=== PATIENT | female | born 1990 | race Caucasian/White ===

== ENCOUNTER → 2018-05-16 15:46 | Outpatient (CLI) | payer BC, SELFPAY ==
[2015-06-13 10:07] VITALS: BMI 29.2
== END ==
PROVIDERS: Family Provider Family Medicine; PCP Family Medicine; Referring Provider Otolaryngology; Visit Provider Otolaryngology
DX: J02.9 Acute pharyngitis, unspecified (principal); R05 Cough
CPT/HCPCS: 87070; 87077; 87186; 87804

== ENCOUNTER → 2019-02-17 10:33 | Outpatient (CLI) | payer BC, SELFPAY ==
[2019-02-17 12:38] LABS: Absolute Lymphocyte Count 2.02 X10^3/uL (0.83-4.51); Basophil# 0.04 X10^3/uL; Basophil% 0.5 % (0-1); Eosinophil# 0.15 X10^3/uL; Eosinophils% 1.9 % (0-5); Hematocrit 45.3 % (37-47); Hemoglobin 14.9 g/dL (12.0-15.0); Lymphocyte # 2.02 X10^3/ul (4.0); Lymphocyte % 25.7 % (19-41); Mean Corp Hgb Conc 32.9 g/dL (32-36); Mean Corpuscular Hgb 31.8 pg (27.0-32.0); Mean Corpuscular Volume 96.8 fL (81-99); Monocyte# 0.64 X10^3/uL; Monocyte% 8.2 % (0-10); NRBC Flagged by Analyzer 0 % (0-5); Neutrophil # 4.95 X10^3/uL (2.7-7.7); Neutrophil % 63.1 % (47-70); Platelet Count 247 K/mm3 (150-450); RBC Distribution Width CV 11.8 % (11.6-14.6); RBC Distribution Width SD 41.7 fl (35.1-43.9); Red Blood Count 4.68 M/mm3 (4.2-5.4); White Blood Count 7.9 K/mm3 (4.4-11.0)
[2019-02-17 12:49] LABS: ALB/GLOB Ratio 1.1 RATIO (0.9-2.4); AST(SGOT) 15 U/L (15-37); Alanine Aminotransfer ALT/SGPT 14 U/L (13-56); Albumin, Serum 3.7 g/dL (3.2-5.0); Alkaline Phosphatase 66 U/L (45-117); Anion Gap 5 (5-15); BUN 15 mg/dL (7-18); BUN/Creat Ratio 15.2 RATIO (10-20); Calcium,Total 8.6 mg/dL (8.5-10.1); Chloride 109 mmol/L (98-107); Cholesterol 199 mg/dL (200); Creatinine, Serum 0.99 mg/dL (0.55-1.02); EST Glomerular Filtration Rate 70 mL/min (>60); Est Glom Filt Rate - Afr Amer 85 mL/min (>60); Globulin 3.4 g/dL (2.2-4.2); Glucose 84 mg/dL (74-106); High Density Lipoprotein 60 mg/dL; Potassium 3.8 mmol/L (3.5-5.1); Protein, Total 7.1 g/dL (6.4-8.2); Sodium Level 139 mmol/L (136-145); Thyroid Stim Hormone (TSH) 0.91 uIU/mL (0.358-3.74); Triglycerides 119 mg/dL; Very Low Density Lipoprotein 24 mg/dL (5-40)
== END ==
PROVIDERS: Family Provider Family Medicine; PCP Family Medicine; Visit Provider Family Medicine
DX: E28.2 Polycystic ovarian syndrome (principal); F32.9 Major depressive disorder, single episode, unspecified; Z31.69 Encounter for other general counseling and advice on procreation
CPT/HCPCS: 36415; 80053; 80061; 84443; 85025

== ENCOUNTER → 2020-04-21 15:21 | Outpatient (CLI) | payer BC, SELFPAY | PROVIDERS: PCP Family Medicine; Visit Provider Family Medicine | DX: Z01.419 Encounter for gynecological examination (general) (routine) without abnormal findings (principal) ==

== ENCOUNTER → 2020-11-15 20:03 | Outpatient (CLI) | payer BC, SELFPAY ==
[2020-11-15 21:18] LABS: hCG Titer Quant., Serum 2275 mIU/mL (1-3)
== END ==
PROVIDERS: PCP Family Medicine; Visit Provider Obstetrics & Gynecology
DX: E28.2 Polycystic ovarian syndrome (principal)
CPT/HCPCS: 84702

== ENCOUNTER → 2020-11-17 16:46 | Outpatient (CLI) | payer BC, SELFPAY ==
[2020-11-17 18:15] LABS: hCG Titer Quant., Serum 4237 mIU/mL (1-3)
== END ==
PROVIDERS: PCP Family Medicine; Referring Provider Obstetrics & Gynecology; Visit Provider Obstetrics & Gynecology
DX: N91.2 Amenorrhea, unspecified (principal)
CPT/HCPCS: 36415; 84702

== ENCOUNTER → 2020-11-22 07:51 | Outpatient (CLI) | payer BC, SELFPAY ==
--- NOTE | 2020-11-22 07:53 | US_ITS ---
STUDY: FIRST TRIMESTER OBSTETRICAL ULTRASOUND REASON FOR EXAM: Female, 30 years old viability/dating LMP: 09/07/2020. TECHNIQUE: Transvaginal TECHNICAL QUALITY: Adequate. PRIOR ULTRASOUND: None. FINDINGS: There is visualization of a single gestational sac in a normal intrauterine position. The mean sac diameter (MSD) measures 9.3 mm, indicating an estimated gestational age (EGA) of 5 weeks, 5 days. The gestational sac shape is within normal limits. There is a visualized yolk sac. The yolk sac measures 3.6 mm. The placenta is non-visualized. There is visualization of a live embryo. The crown-rump length (CRL) measures 2.6 mm, indicating an estimated gestational age (EGA) of 6 weeks, 0 days. There is no demonstrated cardiac activity at this time. The estimated gestation age (EGA) by LMP is 10 weeks, 6 days. The estimated date of delivery (ISABELLE) by LMP is 06/14/2021. The estimated gestation age (EGA) by US is 5 weeks, 6 days. The estimated date of delivery (ISABELLE) by US is 07/19/2021. The uterus measures 9.7 cm x 5.8 cm x 4.3 cm. There is no demonstrated uterine fibroid. The cervix is closed. The right ovary measures 3.5 cm x 2 cm x 2 cm. There is no right ovarian cyst. There is no visualized right adnexal mass or complex lesion. The left ovary measures 5.6 cm x 3.4 cm x 2.2 cm. There is a 2 cm x 2.2 cm x 2.3 cm left ovarian cyst. There is no visualized left adnexal mass or complex lesion. There is no fluid in the cul de sac. US/Transvaginal w/Preg US IMPRESSION: Entry uterine gestational sac with a pole. No cardiac activity is seen at this time. The estimated gestational age is 5 weeks and 6 days. Follow-up is recommended. 2 cm x 2.2 cm x 2.3 cm left ovarian cyst. Electronically Signed: Shelton Jordan MD at 13:35 EDT , Service support ,
--- NOTE | 2020-11-30 11:02 | US_ITS ---
STUDY: FIRST TRIMESTER OBSTETRICAL ULTRASOUND REASON FOR EXAM: Female, 30 years old viability LMP: Unknown. TECHNIQUE: Transvaginal TECHNICAL QUALITY: Adequate. PRIOR ULTRASOUND: Comparison is made with prior study dated 11/22/2020. FINDINGS: There is visualization of a single gestational sac in a normal intrauterine position. The mean sac diameter (MSD) measures 1.76 cm, indicating an estimated gestational age (EGA) of 6 weeks, 4 days. The gestational sac shape is within normal limits. There is a visualized yolk sac. The yolk sac measures 5.1 mm. The placenta is non-visualized. There is visualization of a live embryo. The crown-rump length (CRL) measures 9.5 mm, indicating an estimated gestational age (EGA) of 7 weeks, 0 days. There is demonstrated cardiac activity with a heart rate of 123 bpm. The estimated gestation age (EGA) by US is 6 weeks, 5 days. The estimated date of delivery (ISABELLE) by US is 07/21/2021. The uterus measures 9.3 cm x 6.7 cm x 4.8 cm. There is no demonstrated uterine fibroid. The cervix is closed. The right ovary measures 3.5 cm x 1.9 cm x 1.7 cm. There is no right ovarian cyst. There is no visualized right adnexal mass or complex lesion. The left ovary measures 4.8 cm x 3.2 cm x 2.3 cm. There is a 2.3 cm x 1.9 cm x 2.3 cm left ovarian cyst. There is no visualized left adnexal mass or complex lesion. There is no fluid in the cul de sac. US/Transvaginal w/Preg US IMPRESSION: Single live intrauterine gestation with a mean gestational age of 6 weeks and 5 days. Electronically Signed: Shelton Jordan MD at 15:20 EDT , Service support ,
== END ==
LOC: OPUS 07:56 → LAB 16:07
PROVIDERS: PCP Family Medicine; Referring Provider Obstetrics & Gynecology; Visit Provider Obstetrics & Gynecology
DX: Z34.90 Encounter for supervision of normal pregnancy, unspecified, unspecified trimester (principal)
CPT/HCPCS: 36415; 76817; 86850; 86900; 86901

== ENCOUNTER → 2020-11-30 10:48 | Outpatient (CLI) | payer BC, SELFPAY | PROVIDERS: PCP Family Medicine; Referring Provider Obstetrics & Gynecology; Visit Provider Obstetrics & Gynecology | DX: Z34.90 Encounter for supervision of normal pregnancy, unspecified, unspecified trimester (principal) | CPT/HCPCS: 76817 ==

== ENCOUNTER → 2020-12-19 18:12 | Outpatient (CLI) | payer BC, SELFPAY ==
[2020-12-19 18:35] LABS: Amphetamine Urine VISTA NEGATIVE (<1000 ng/mL); Barbiturate Urine VISTA NEGATIVE (< 200 ng/mL); Benzodiazepine Urine VISTA NEGATIVE (< 200 ng/mL); Cocaine Urine VISTA NEGATIVE (< 300 ng/mL); Ecstacy Urine VISTA NEGATIVE (< 500 ng/mL); Methadone Urine VISTA NEGATIVE (< 300 ng/mL); PCP Urine VISTA NEGATIVE (< 25 ng/mL); THC Urine VISTA NEGATIVE (< 50 ng/mL); Vista UDS pH Range 6
[2020-12-21 22:07] LABS: Chlamydia By Nucleic Acid AMP Negative (Negative)
[2020-12-22 08:10] LABS: Gonococcus By Nucleic Acid AMP Negative (Negative)
[2020-12-23 15:59] LABS: HPV APTIMA, High Risk Negative (Negative)
== END ==
PROVIDERS: PCP Family Medicine; Referring Provider Obstetrics & Gynecology; Visit Provider Obstetrics & Gynecology
DX: Z34.90 Encounter for supervision of normal pregnancy, unspecified, unspecified trimester (principal)
CPT/HCPCS: 80307; 87086; 87088; 87491; 87591; 87624; 88175; G0145

== ENCOUNTER → 2020-12-22 13:34 | Outpatient (CLI) | payer BC, SELFPAY ==
[2020-12-22 14:01] LABS: Absolute Lymphocyte Count 2.15 X10^3/uL (0.83-4.51); Absolute Neutrophil Count 9.8 X10^3/uL (2.0-7.7); Basophil# 0.04 X10^3/uL; Basophil% 0.3 % (0-1); Eosinophil# 0.13 X10^3/uL; Hematocrit 41.4 % (37-47); Hemoglobin 13.9 g/dL (12.0-15.0); Lymphocyte # 2.15 X10^3/ul (0.83-4.51); Lymphocyte % 16.7 % (19-41); Mean Corp Hgb Conc 33.6 g/dL (32-36); Mean Corpuscular Hgb 31.2 pg (27.0-32.0); Mean Corpuscular Volume 92.8 fL (81-99); Mean Platelet Vol. 10.5 fl (6.2-12.0); Monocyte# 0.64 X10^3/uL; NRBC Flagged by Analyzer 0 % (0-5); Neutrophil # 9.82 X10^3/uL (2.7-7.7); Neutrophil % 76.2 % (47-70); Platelet Count 272 K/mm3 (150-450); RBC Distribution Width CV 11.3 % (11.6-14.6); RBC Distribution Width SD 38.5 fl (35.1-43.9); Red Blood Count 4.46 M/mm3 (4.2-5.4); White Blood Count 12.9 K/mm3 (4.4-11.0)
[2020-12-22 14:56] LABS: HIV - WCH Non-Reactive (Nonreactive); Hepatitis B Surface Antigen Non-Reactive (Nonreactive); Hepatitis C Antibody Non-Reactive (Nonreactive); Rubella IgG Reactive (Nonreactive); Syphilis Antibodies Non-reactive
[2020-12-22 15:08] LABS: NATERA MAILED SPECIMEN
== END ==
PROVIDERS: PCP Family Medicine; Referring Provider Obstetrics & Gynecology; Visit Provider Obstetrics & Gynecology
DX: Z34.90 Encounter for supervision of normal pregnancy, unspecified, unspecified trimester (principal)
CPT/HCPCS: 36415; 85025; 86703; 86762; 86780; 86803; 86850; 86900; 86901; 87340

== ENCOUNTER → 2021-01-25 10:57 | Outpatient (CLI) | payer BC, SELFPAY ==
[2021-01-25 11:41] LABS: Glucose Challenge Gest 1H 50g 150 mg/dL (70-140)
== END ==
PROVIDERS: PCP Family Medicine; Referring Provider Obstetrics & Gynecology; Visit Provider Obstetrics & Gynecology
DX: O99.212 Obesity complicating pregnancy, second trimester (principal); Z3A.00 Weeks of gestation of pregnancy not specified
CPT/HCPCS: 36415; 82950

== ENCOUNTER → 2021-01-27 09:47 | Outpatient (CLI) | payer BC, SELFPAY ==
[2021-01-27 11:49] LABS: Glucose GTT-Gestation. Fasting 93 mg/dL (<105)
[2021-01-27 11:51] LABS: Glucose GTT-Gestational 1 Hr 177 mg/dL (<190)
[2021-01-27 13:27] LABS: Glucose GTT-Gestational 2 Hr 150 mg/dL (<165)
[2021-01-27 13:59] LABS: Glucose GTT-Gestational 3 Hr 110 L (<145)
== END ==
PROVIDERS: Obstetrics & Gynecology; PCP Family Medicine; Referring Provider Obstetrics & Gynecology; Visit Provider Obstetrics & Gynecology
DX: Z13.1 Encounter for screening for diabetes mellitus (principal)
CPT/HCPCS: 36415; 82951; 82952

== ENCOUNTER → 2021-02-14 17:15 | Outpatient (CLI) | payer BC, SELFPAY | PROVIDERS: PCP Family Medicine; Referring Provider Obstetrics & Gynecology; Visit Provider Obstetrics & Gynecology | DX: O23.40 Unspecified infection of urinary tract in pregnancy, unspecified trimester (principal); Z3A.00 Weeks of gestation of pregnancy not specified | CPT/HCPCS: 87086 ==

== ENCOUNTER 2021-03-21 04:08 | Emergency (ER) | payer BC, SELFPAY ==
[2021-03-21 04:10] VITALS: BP 118/80; PULSE 112; RESP 20; TEMP 36.4; O2SAT 95; BMI 36.5
--- NOTE | 2021-03-21 04:30 | EX.ED.DYSGE1 ---
HPI History of Present Illness Chief Complaint: Diarrhea Informant: patient Narrative Narrative: 30-year-old female presents to the emergency department diarrhea. Patient states that she is in her second trimester of . On Saturday she experienced vomiting took some Zofran. Early during the Saturday morning hours she developed diarrhea and states that its been copious since. She describes it as watery and nonbloody. She feels dehydrated. 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 She denies any fever or abdominal cramping. She has been feeling the baby move appropriately. This is her first and she states it has been going well. She is currently following with Dr. Coughlin. [facility] Medical History PCOS (polycystic ovarian syndrome) Home Medications vitamin#30 30 mg iron-10 mg iron-folic acid 1 mg-omg3 capsule 1 cap PO DAILY 12/19/20 [History Last Taken Unknown] ondansetron 4 mg disintegrating tablet 4 mg PO Q4H PRN #60 tab 01/19/21 [Rx Last Taken Unknown] Allergy/AdvReac Type Severity Reaction Status Date / Time No Known Allergies Allergy Verified 03/21/21 04:09 Family History Father Hypertension Mother Hyperlipemia Aunt Diabetes Breast cancer Grandmother Breast cancer Hypertension Colon cancer Surgical History no surgical history Social History housing: house current occupational status: employed current occupation: [employer] pets and animals: Yes Smoking Status: Former smoker second hand exposure: No alcohol intake: current substance use type: former substance user seatbelt use: always do you feel safe at home: Yes ROS ROS ED Constitutional Constitutional ED: Denies chills or weight loss Eyes Eyes: Denies change in vision or diplopia ENT ENT ED: Denies ear pain, rhinorrhea or sore throat Cardiovascular Cardiovascular: Denies chest pain, orthopnea, palpitations or racing heartbeat Respiratory/Chest Respiratory/Chest: Denies cough, dyspnea or orthopnea Gastrointestinal Gastrointestinal: Reports diarrhea, nausea and vomiting; Denies abdominal pain Genitourinary Genitourinary ED: Denies dysuria, hematuria or urinary frequency Musculoskeletal Musculoskeletal: Denies arthralgias or myalgias Integumentary Denies abscess or rash Neurologic Neurologic: Denies headache(s) or weakness Psychiatric Psychiatric: Denies anxiety, depression, suicidal ideation or suicidal thoughts Endocrine Endocrinology: Denies polydipsia, polyphagia or polyuria Allergic/Immunologic Allergic/Immunologic ED: Denies mouth swelling, tongue swelling or urticaria EXAM Physical Exam Const Vital Signs: 03/21/21 04:10 Temperature 97.5 F L Temperature Source Oral Pulse Rate 112 H Respiratory Rate 20 H Blood Pressure 118/80 Blood Pressure Mean 92 Pulse Ox 95 Oxygen Delivery Method Room Air Positive well nourished and well developed General Appearance ED: well developed HEENT Reports normocephalic, head/scalp atraumatic, TM's clear and dry mucous membranes Negative for trauma Tympanic Membrane ED: Yes TM's clear Mouth ED: Yes dry mucous membranes Mouth: dry mucous membranes Eyes PERRL and EOMs intact bilaterally Neck no lymphadenopathy, supple and no JVD Resp normal respiratory effort and clear to auscultation bilaterally Cardio regular rate and no murmurs Rate: tachycardic GI normal to inspection, nondistended, normoactive bowel sounds and non-tender Palpation: soft Back/Spine no CVA tenderness and normal ROM Extremity normal to inspection General Extremety ED: Negative for edema General Extremity: Negative for edema Neuro oriented x3 and CN's II-XII intact bilaterally Sensorium / Orientation: alert Motor Exam: strength 5/5 throughout Psych mental status grossly normal Mood & Affect: Negative for depressed or tearful Skin no rashes or lesions noted and no wounds MDM MDM MDM Narrative Medical decision making narrative: Basic blood work showed a slight nonspecific leukocytosis at 14. CMP is otherwise normal. Patient received 2 L of IV fluids. She was able to produce a specimen which was sent for enteric pathogens. Patient instructed to return if worsening or concerns and to orally hydrate. Lab Data Attestation: I reviewed the patient's lab results. Labs: Laboratory Results - last 24 hr 03/21/21 03/21/21 04:37 04:37 WBC 14.3 H RBC 3.95 L Hgb 12.1 Hct 36.8 L MCV 93.2 MCH 30.6 MCHC 32.9 RDW Std Deviation 42.2 RDW Coeff of David 12.2 Plt Count 220 MPV 11.0 Immature Gran % (Auto) 1.300 H Neut % (Auto) 81.3 H Lymph % (Auto) 8.6 L Miller % (Auto) 7.5 Eos % (Auto) 1.0 Baso % (Auto) 0.3 Absolute Neuts (auto) 11.6 H Absolute Lymphs (auto) 1.23 Nucleated RBC % 0 Sodium 137 Potassium 3.7 Chloride 108 H Carbon Dioxide 21.0 Anion Gap 8 BUN 10 Creatinine 0.68 Estim Creat Clear Calc 132.75 Est GFR (MDRD) Af Amer 129 Est GFR (MDRD) Non-Af 106 BUN/Creatinine Ratio 14.7 Glucose 95 Calcium 8.3 L Total Bilirubin 0.30 AST 26 ALT 26 Alkaline Phosphatase 71 Total Protein 6.4 Albumin 2.8 L Globulin 3.6 Albumin/Globulin Ratio 0.8 L Discharge Plan Triage Chief Complaint: Diarrhea ED Provider: Kleber Wesley Dx/Rx/DC Orders Clinical Impression: , Diarrhea Instructions: ED Diarrhea, Unknown Cause Prescriptions: No Action PNV #[id number] 30 mg iron-10 mg iron-1 mg capsule 1 cap PO DAILY RF: 0 ondansetron 4 mg tablet,disintegrating 4 mg PO Q4H PRN (Reason: nausea and vomiting) Qty: 60 RF: 2 Primary Care Provider: Marianne Nguyen Referrals: Marianne Nguyen MD [Primary Care Provider] - As Needed Disposition Disposition: Home, Self Care
[2021-03-21] MEDS: 0.9% Normal Saline 1,000 ML 999 ML IV ×2 (04:41→05:58)
[2021-03-21 04:43] LABS: Absolute Lymphocyte Count 1.23 X10^3/uL (0.83-4.51); Absolute Neutrophil Count 11.6 X10^3/uL (2.0-7.7); Basophil# 0.04 X10^3/uL; Basophil% 0.3 % (0-1); Eosinophil# 0.14 X10^3/uL; Hematocrit 36.8 % (37-47); Hemoglobin 12.1 g/dL (12.0-15.0); Lymphocyte # 1.23 X10^3/ul (0.83-4.51); Lymphocyte % 8.6 % (19-41); Mean Corp Hgb Conc 32.9 g/dL (32-36); Mean Corpuscular Hgb 30.6 pg (27.0-32.0); Mean Corpuscular Volume 93.2 fL (81-99); Monocyte# 1.07 X10^3/uL; Monocyte% 7.5 % (0-10); NRBC Flagged by Analyzer 0 % (0-5); Neutrophil # 11.61 X10^3/uL (2.7-7.7); Neutrophil % 81.3 % (47-70); Platelet Count 220 K/mm3 (150-450); RBC Distribution Width CV 12.2 % (11.6-14.6); RBC Distribution Width SD 42.2 fl (35.1-43.9); Red Blood Count 3.95 M/mm3 (4.2-5.4); White Blood Count 14.3 K/mm3 (4.4-11.0)
[2021-03-21 05:07] LABS: ALB/GLOB Ratio 0.8 RATIO (0.9-2.4); AST(SGOT) 26 U/L (15-37); Alanine Aminotransfer ALT/SGPT 26 U/L (13-56); Albumin, Serum 2.8 g/dL (3.2-5.0); Alkaline Phosphatase 71 U/L (45-117); Anion Gap 8 (5-15); BUN 10 mg/dL (7-18); BUN/Creat Ratio 14.7 RATIO (10-20); Calcium,Total 8.3 mg/dL (8.5-10.1); Chloride 108 mmol/L (98-107); Creatinine, Serum 0.68 mg/dL (0.55-1.02); EST Glomerular Filtration Rate 106 mL/min (>60); Est Glom Filt Rate - Afr Amer 129 mL/min (>60); Estimated Creatinine Clearance 132.75 ml/min; Globulin 3.6 g/dL (2.2-4.2); Glucose 95 mg/dL (74-106); Potassium 3.7 mmol/L (3.5-5.1); Protein, Total 6.4 g/dL (6.4-8.2); Sodium Level 137 mmol/L (136-145)
== END 2021-03-21 09:18 | disposition home or self-care (01) ==
PROVIDERS: Emergency Provider Emergency Medicine; PCP Family Medicine; Visit Provider Emergency Medicine
DX: O99.612 Diseases of the digestive system complicating pregnancy, second trimester (principal); R19.7 Diarrhea, unspecified; Z87.891 Personal history of nicotine dependence; Z3A.00 Weeks of gestation of pregnancy not specified
CPT/HCPCS: 80053; 85025; 87506; 99284; A4216

== ENCOUNTER 2021-04-11 09:21 | Outpatient (CLI) | payer BC, SELFPAY ==
[2021-04-11 09:50] LABS: Absolute Lymphocyte Count 2.22 X10^3/uL (0.83-4.51); Absolute Neutrophil Count 9.1 X10^3/uL (2.0-7.7); Basophil# 0.05 X10^3/uL; Basophil% 0.4 % (0-1); Eosinophil# 0.18 X10^3/uL; Eosinophils% 1.4 % (0-5); Hematocrit 36.7 % (37-47); Hemoglobin 12.5 g/dL (12.0-15.0); Lymphocyte # 2.22 X10^3/ul (0.83-4.51); Lymphocyte % 17.8 % (19-41); Mean Corp Hgb Conc 34.1 g/dL (32-36); Mean Corpuscular Hgb 31.1 pg (27.0-32.0); Mean Corpuscular Volume 91.3 fL (81-99); Mean Platelet Vol. 11.1 fl (6.2-12.0); Monocyte# 0.73 X10^3/uL; Monocyte% 5.8 % (0-10); NRBC Flagged by Analyzer 0 % (0-5); Neutrophil # 9.13 X10^3/uL (2.7-7.7); Neutrophil % 73.2 % (47-70); Platelet Count 237 K/mm3 (150-450); RBC Distribution Width CV 12.3 % (11.6-14.6); Red Blood Count 4.02 M/mm3 (4.2-5.4); White Blood Count 12.5 K/mm3 (4.4-11.0)
[2021-04-11 10:27] LABS: Glucose Challenge Gest 1H 50g 147 mg/dL (70-140)
== END 2021-04-11 23:59 | disposition short-term general hospital (02) ==
LOC: PAVLAB 09:22
PROVIDERS: PCP Family Medicine; Referring Provider Obstetrics & Gynecology; Visit Provider Obstetrics & Gynecology
DX: Z34.02 Encounter for supervision of normal first pregnancy, second trimester (principal)
CPT/HCPCS: 36415; 82950; 85025

== ENCOUNTER 2021-04-20 07:01 | Outpatient (CLI) | payer BC, SELFPAY ==
[2021-04-20 08:32] LABS: Glucose GTT-Gestation. Fasting 85 mg/dL (<105)
[2021-04-20 08:35] LABS: Glucose GTT-Gestational 1 Hr 164 mg/dL (<190)
[2021-04-20 09:37] LABS: Glucose GTT-Gestational 2 Hr 145 mg/dL (<165)
[2021-04-20 10:49] LABS: Glucose GTT-Gestational 3 Hr 121 L (<145)
== END 2021-04-20 23:59 | disposition home or self-care (01) ==
LOC: LAB 07:02
PROVIDERS: PCP Family Medicine; Referring Provider Obstetrics & Gynecology; Visit Provider Obstetrics & Gynecology
DX: O99.810 Abnormal glucose complicating pregnancy (principal); Z3A.00 Weeks of gestation of pregnancy not specified
CPT/HCPCS: 36415; 82951; 82952

== ENCOUNTER 2021-06-06 12:11 | Outpatient (CLI) | payer BC, SELFPAY ==
[2021-06-06 12:27] LABS: Absolute Lymphocyte Count 2.56 X10^3/uL (0.83-4.51); Absolute Neutrophil Count 8.7 X10^3/uL (2.0-7.7); Basophil# 0.03 X10^3/uL; Basophil% 0.2 % (0-1); Eosinophil# 0.11 X10^3/uL; Eosinophils% 0.9 % (0-5); Hematocrit 38.4 % (37-47); Hemoglobin 13.1 g/dL (12.0-15.0); Lymphocyte # 2.56 X10^3/ul (0.83-4.51); Lymphocyte % 20.2 % (19-41); Mean Corp Hgb Conc 34.1 g/dL (32-36); Mean Platelet Vol. 11.5 fl (6.2-12.0); Monocyte# 1.14 X10^3/uL; NRBC Flagged by Analyzer 0 % (0-5); Neutrophil # 8.65 X10^3/uL (2.7-7.7); Neutrophil % 68.1 % (47-70); Platelet Count 233 K/mm3 (150-450); RBC Distribution Width CV 12.6 % (11.6-14.6); Red Blood Count 4.22 M/mm3 (4.2-5.4); White Blood Count 12.7 K/mm3 (4.4-11.0)
[2021-06-06 13:14] LABS: ALB/GLOB Ratio 0.7 RATIO (0.9-2.4); AST(SGOT) 20 U/L (15-37); Alanine Aminotransfer ALT/SGPT 22 U/L (13-56); Albumin, Serum 2.9 g/dL (3.2-5.0); Alkaline Phosphatase 105 U/L (45-117); Anion Gap 5 (5-15); BUN 9 mg/dL (7-18); Calcium,Total 9.2 mg/dL (8.5-10.1); Chloride 106 mmol/L (98-107); Creatinine, Serum 0.75 mg/dL (0.55-1.02); EST Glomerular Filtration Rate 95 mL/min (>60); Est Glom Filt Rate - Afr Amer 115 mL/min (>60); Globulin 3.9 g/dL (2.2-4.2); Glucose 72 mg/dL (74-106); Potassium 4.3 mmol/L (3.5-5.1); Protein, Total 6.8 g/dL (6.4-8.2); Sodium Level 136 mmol/L (136-145)
[2021-06-06 13:57] LABS: Protein, Urine (Random) 17.4 mg/dL (<11.9); Protein:Creat Ratio 193 mg/g CRE (0-200)
== END 2021-06-06 23:59 | disposition home or self-care (01) ==
LOC: LAB 12:12
PROVIDERS: PCP Family Medicine; Visit Provider Obstetrics & Gynecology
DX: O16.3 Unspecified maternal hypertension, third trimester (principal); Z3A.00 Weeks of gestation of pregnancy not specified
CPT/HCPCS: 36415; 80053; 82570; 84156; 85025

== ENCOUNTER 2021-06-13 14:39 | Outpatient (CLI) | payer BC, SELFPAY ==
[2021-06-13 14:58] LABS: Absolute Lymphocyte Count 1.97 X10^3/uL (0.83-4.51); Absolute Neutrophil Count 8.6 X10^3/uL (2.0-7.7); Basophil# 0.02 X10^3/uL; Basophil% 0.2 % (0-1); Eosinophils% 0.8 % (0-5); Hematocrit 37.6 % (37-47); Hemoglobin 12.6 g/dL (12.0-15.0); Lymphocyte # 1.97 X10^3/ul (0.83-4.51); Lymphocyte % 16.7 % (19-41); Mean Corp Hgb Conc 33.5 g/dL (32-36); Mean Corpuscular Hgb 30.8 pg (27.0-32.0); Mean Corpuscular Volume 91.9 fL (81-99); Mean Platelet Vol. 11.8 fl (6.2-12.0); Monocyte# 1.05 X10^3/uL; Monocyte% 8.9 % (0-10); NRBC Flagged by Analyzer 0 % (0-5); Neutrophil # 8.57 X10^3/uL (2.7-7.7); Neutrophil % 72.4 % (47-70); Platelet Count 227 K/mm3 (150-450); RBC Distribution Width CV 12.5 % (11.6-14.6); RBC Distribution Width SD 41.3 fl (35.1-43.9); Red Blood Count 4.09 M/mm3 (4.2-5.4); White Blood Count 11.8 K/mm3 (4.4-11.0)
[2021-06-13 15:32] LABS: ALB/GLOB Ratio 0.7 RATIO (0.9-2.4); AST(SGOT) 20 U/L (15-37); Alanine Aminotransfer ALT/SGPT 21 U/L (13-56); Albumin, Serum 2.8 g/dL (3.2-5.0); Alkaline Phosphatase 102 U/L (45-117); Anion Gap 6 (5-15); BUN 12 mg/dL (7-18); BUN/Creat Ratio 13.1 RATIO (10-20); Calcium,Total 9.3 mg/dL (8.5-10.1); Chloride 108 mmol/L (98-107); Creatinine, Serum 0.92 mg/dL (0.55-1.02); EST Glomerular Filtration Rate 75 mL/min (>60); Est Glom Filt Rate - Afr Amer 91 mL/min (>60); Globulin 3.9 g/dL (2.2-4.2); Glucose 96 mg/dL (74-106); Potassium 4.3 mmol/L (3.5-5.1); Protein, Total 6.7 g/dL (6.4-8.2); Sodium Level 138 mmol/L (136-145)
[2021-06-13 15:37] LABS: Protein:Creat Ratio 111 mg/g CRE (0-200)
== END 2021-06-13 23:59 | disposition home or self-care (01) ==
LOC: PAVLAB 14:39
PROVIDERS: PCP Family Medicine; Referring Provider Obstetrics & Gynecology; Visit Provider Obstetrics & Gynecology
DX: O13.9 Gestational [pregnancy-induced] hypertension without significant proteinuria, unspecified trimester (principal); Z3A.00 Weeks of gestation of pregnancy not specified
CPT/HCPCS: 36415; 80053; 82570; 84156; 85025

== ENCOUNTER 2021-06-14 15:30 | Inpatient (IN) | payer BC, SELFPAY ==
[2021-06-14] VITALS (67 sets, daily range): BP systolic 126–179; BP diastolic 52–116; PULSE 86–118; RESP 16–18; TEMP 36.3–36.9; O2SAT 90–98; BMI 40.2
[2021-06-14 15:33] LABS: Protein, Urine (Random) 19.3 mg/dL (<11.9); Protein:Creat Ratio 218 mg/g CRE (0-200)
[2021-06-14] MEDS: Lactated Ringers 1,000 ML 15 ML IV (15:50)
[2021-06-14] MEDS: Labetalol (Prefilled) 20 MG/4 ML IV (15:50)
[2021-06-14] MEDS: Magnesium Sulfate 4gm/100mL 4 GM/100 ML IV.SOLN. IV (15:57)
[2021-06-14 16:12] LABS: Absolute Neutrophil Count 13.9 X10^3/uL (2.0-7.7); Basophil# 0.07 X10^3/uL; Basophil% 0.4 % (0-1); Eosinophil# 0.02 X10^3/uL; Eosinophils% 0.1 % (0-5); Hematocrit 38.2 % (37-47); Hemoglobin 13.2 g/dL (12.0-15.0); Lymphocyte % 11.3 % (19-41); Mean Corp Hgb Conc 34.6 g/dL (32-36); Mean Corpuscular Hgb 31.5 pg (27.0-32.0); Mean Corpuscular Volume 91.2 fL (81-99); Mean Platelet Vol. 12.3 fl (6.2-12.0); Monocyte# 1.29 X10^3/uL; Monocyte% 7.3 % (0-10); NRBC Flagged by Analyzer 0 % (0-5); Neutrophil # 13.86 X10^3/uL (2.7-7.7); Neutrophil % 77.9 % (47-70); Platelet Count 249 K/mm3 (150-450); RBC Distribution Width CV 12.4 % (11.6-14.6); RBC Distribution Width SD 40.7 fl (35.1-43.9); Red Blood Count 4.19 M/mm3 (4.2-5.4); White Blood Count 17.8 K/mm3 (4.4-11.0)
[2021-06-14] MEDS: Magnesium Sulfate 4gm/100mL 2 GM/50 ML IV.SOLN. IV (16:16)
[2021-06-14] MEDS: Labetalol 100 MG Tablet PO (16:24)
[2021-06-14] MEDS: Labetalol (Compound) 20 MG/4 ML SYRINGE IV ×2 (16:27→16:44)
[2021-06-14] MEDS: Magnesium Sulfate 20 GM/500 ML BAG IV (16:31)
--- NOTE | 2021-06-14 17:25 | HP.PCM.OB_ITS ---
HPI - General General Date of Admission: 06/14/21 HPI Narrative JENNYFER RAMIREZ, is a 30 y/o @ 35 weeks 4 day who presents to L&D after being seen in office today with severe range blood pressures. She denies headaches, blurry vision, or epigastric pain other than mild headache from crying. Labs were done yesterday along with Celestone injections x 2 yesterday and today. pr:cr yesterday was 111 and today is 218. Plts and LFts are all normal. Maternal Data Information ISABELLE Calculator Estimated Delivery Date Method Current WG Current Estimate 07/15/21 LMP (Certain) 35w 4d PFSH PFSH Medical History (Updated 06/14/21 @ 17:01 by Koki Coulter) Anxiety PCOS (polycystic ovarian syndrome) Home Medications vitamin#30 30 mg iron-10 mg iron-folic acid 1 mg-omg3 capsule 1 cap PO DAILY 12/19/20 [History Last Taken 06/13/21 20:00] Allergy/AdvReac Type Severity Reaction Status Date / Time No Known Allergies Allergy Verified 06/14/21 14:15 Family History Father Hypertension Mother Hyperlipemia Aunt Diabetes Breast cancer Grandmother Breast cancer Hypertension Colon cancer Surgical History (Updated 06/14/21 @ 17:01 by Koki Coulter) [place] teeth removed Social History housing: house current occupational status: employed current occupation: [employer] pets and animals: Yes Smoking Status: Former smoker second hand exposure: No alcohol intake: current substance use type: former substance user seatbelt use: always do you feel safe at home: Yes History 1 Elective abortions Hx Para 0 Spontaneous abortions Hx # Term Pregnancies Ectopic pregnancies Hx # Pregnancies Multiple births # of living children Visit Details Expected Delivery Route/Plan Labor Preferences- CB/BF classes: yes scheduled labor support person: Wilfrid, mom Maci labor intervention preferences: [] pain management options preferred: epidural cut cord/dad catch: [] : yes PP control planned: discussed discussed possible routes of delivery and associated risks: [] special requests: [] Plans Covid status: 05/01 moderna vaccinated7 Flu vaccine: yes Tdap vaccine: given Rhogam: na LARC form signed: yes Problem list reviewed and updated with the most current plan of care details and appropriate orders placed. Relevant counseling for the gestational age provided. Continue routine care and follow up unless otherwise noted in visit notes/problem list details OB Flowsheet Initial Weight: Not Recorded Date -?-?-?-?-?-?-?-?-?-?-?-?- EGA Weight BP Urine Prot -?-?-?-?-?-?-?-?-?-?-?-?- Glucose FHR FuHt Pres Dilation -?-?-?-?-?-?-?-?-?-?-?-?- Effaced St Visit Note 12/19/20 -?-?-?-?-?-?-?-?-?-?-?-?- 10w 2d 248 lb 132/84 -?-?-?-?-?-?-?-?-?-?-?-?- 170 -?-?-?-?-?-?-?-?-?-?-?-?- SM- CRL 3 cm con s with LMP 01/19/21 -?-?-?-?-?-?-?-?-?-?-?-?- 14w 5d 251 lb 4 oz 130/78 Nega tive -?-?-?-?-?-?-?-?-?-?-?-?- Negative 163 -?-?-?-?-?-?-?-?-?-?-?-?- MH-NO VB, LOF. [facility] 01/15 given IV fluids for dehydration and Keflex for UTI. Order sent for MFM anatomy [facility]-NO VB, LOF. [facility] 1 03/17 given IV fluids for dehydration and Keflex for UTI. Order sent for MFM anatomy . Has not done GCT yet due to nausea. Plans to do 01/21. 02/14/21 -?-?-?-?-?-?-?-?-?-?-?-?- 18w 3d 253 lb 2 oz 120/88 Nega tive -?-?-?-?-?-?-?-?-?-?-?-?- Negative 153 -?-?-?-?-?-?-?-?-?-?-?-?- JV- urine CHEMA co llected today. anatomy scan ordered. No complaints. 03/13/21 -?-?-?-?-?-?-?-?-?-?-?-?- 22w 2d 261 lb 4 oz 118/82 Nega tive -?-?-?-?-?-?-?-?-?-?-?-?- Negative 150 -?-?-?-?-?-?-?-?-?-?-?-?- SM- no vb lof co left nipple changes, examined and support given no workup indicated at this time. 04/11/21 -?-?-?-?-?-?-?-?-?-?-?-?- 26w 3d 266 lb 4 oz 118/88 Nega tive -?-?-?-?-?-?-?-?-?-?-?-?- Negative 154 26 -?-?-?-?-?-?-?-?-?-?-?-?- JV- no lof, v ag inal bleeding, or dec fm. failed 1 hr again and needs a 3 hr. 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 04/25/21 -?-?-?-?-?-?-?-?-?-?-?-?- 28w 3d 268 lb 2 oz 126/80 Nega tive -?-?-?-?-?-?-?-?-?-?-?-?- Negative 161 29 -?-?-?-?-?-?-?-?-?-?-?-?- MH-No VB, LOF. G ood FM. Larc signed. Nl 3 hr gtt. growth US nl with MFM. Rpt 4 wk 05/09/21 -?-?-?-?-?-?-?-?-?-?-?-?- 30w 3d 275 lb 120/88 120/88 Negative -?-?-?-?-?-?-?-?-?-?-?-?- Negative 141 30 -?-?-?-?-?-?-?-?-?-?-?-?- JV- no lof, vagi nal bleeding, or dec fm. Growth scan due 05/2205/24/21 -?-?-?-?-?-?-?-?-?-?-?-?- 32w 4d 277 lb 8 oz 131/82 Nega tive -?-?-?-?-?-?-?-?--?-?-?-?- Negative 161 33 -?-?-?-?-?-?-?-?-?-?-?-?- MH-No Vb, LOF. G ood FM. MFM US reviewed with adequate growth and has rpt scheduled. 06/06/21 -?-?-?-?-?-?-?-?-?-?-?-?- 34w 3d 287 lb 4 oz 137/94 Nega tive -?-?-?-?-?-?-?-?-?-?-?-?- Negative 159 34 -?-?-?-?-?-?-?-?-?-?-?-?- JV- mildly eleva brie pressures today. PIH labs ordered. bed rest this week return saturday. pt is asymptomatic with exception of some swelling. 06/09/21 -?-?-?-?-?-?-?-?-?-?-?-?- 34w 6d 285 lb 8 oz 133/90 Nega tive -?-?-?-?-?-?-?-?-?-?-?-?- Negative 150 -?-?-?-?-?-?-?-?-?-?-?-?- JV- reactive nst . still has mildly elevated bp's jade pi.twice weekly nsts and weekly labs. deliver at 37 weeks 06/13/21 -?-?-?-?-?-?-?-?-?-?-?-?- 35w 3d 287 lb 4 oz 137/96 Trac e -?-?-?-?-?-?-?-?-?-?-?-?- Negative 148 -?-?-?-?-?-?-?-?-?-?-?-?- JV- reactice NST . sending for repeat labs again today and watching closely. no headache, blurry vision, epigastric pain. she started her maternity leave. giving celestone today. 06/14/21 -?-?-?-?-?-?-?-?-?-?-?-?- 35w 4d 289 lb 4 oz 150/110 -?-?-?-?-?-?-?-?-?-?-?-?- -?-?-?-?-?-?-?-?-?-?-?-?- 06/14/21 -?-?-?-?-?-?-?-?-?-?-?-?- 35w 4d 288 lb 5.834 oz 168/ 116 174/100 160/98 179/106 160/98 151/101 156/97 156/97 179/103 167/91 179/103 163/100 163/100 143/93 143/93 141/89 141/89 136/88 137/84 -?-?-?-?-?-?-?-?-?-?-?-?- -?-?-?-?-?-?-?-?-?-?-?-?- NST FHR Rate Baby A Baseline: 150 Variability:: Moderate Accelerations:: 15 x 15 Decelerations:: None NST Reactive:: Yes FHR Category:: Category I ROS Constitutional Constitutional: Denies change in weight, fatigue, fever(s), headache(s), poor appetite or weakness Eyes Eyes: Denies blurry vision, change in vision, seeing flashes or spots in vision ENT HEENT: Denies dizziness, headache(s), loss taste/smell or sore throat Cardiovascular Cardiovascular: Denies chest pain, dizziness, dyspnea, irregular heart rhythm, leg edema, palpitations, rapid heart rate or vomiting Respiratory/Chest Respiratory/Chest: Denies chest tightness, cough, dyspnea or breast pain Gastrointestinal Gastrointestinal: Denies abdominal pain, anorexia, constipation, cramping, jailyn rrhea, hemorrhoids, vomiting or weight changes Genitourinary Genitourinary: Denies dysuria, flank pain, genital lesions, genital pain, urinary frequency or urinary urgency Musculoskeletal Musculoskeletal: Denies back pain, difficulty walking, joint pain, limited range of motion, muscle cramps or numbness Integumentary Integumentary: Denies lesions or unusual bruising Neurologic Neurologic: Denies abnormal movements, abnormal speech, dizziness, numbness, seizure-like activity or syncope Psychiatric Psychiatric: Denies anxiety, behavioral changes, change in appetite, change in libido, cognitive impairment, confusion, depression, difficulty concentrating, hallucinations or suicidal thoughts Endocrine Endocrinology: Denies excessive sweating, polydipsia or polyuria Hematologic/Lymphatic Hematologic/Lymphatic: Denies easy bleeding, easy bruising or lymphadenopathy Allergic/Immunologic Allergic/Immunologic: Denies itchy eyes, lip swelling, seasonal rhinorrhea, rhinitis, throat swelling, tongue swelling, eczemia, wheezing or asthma Vital Signs Vital Signs Vital Signs: 06/14/21 14:56 06/14/21 15:12 06/14/21 15:26 Temperature Temperature Source Pulse Rate 90 94 96 Respiratory Rate Respiratory Effort Respiratory Depth Respiratory Pattern Blood Pressure 168/116 H 174/100 H 160/98 H Blood Pressure Mean BP Systolic 168 174 160 BP Diastolic 116 100 98 Blood Pressure Source Blood Pressure Position Blood Pressure Location Pulse Ox Oxygen Delivery Method 06/14/21 15:41 06/14/21 15:57 06/14/21 15:59 Temperature Temperature Source Pulse Rate 118 H 97 99 Respiratory Rate 16 Respiratory Effort Respiratory Depth Respiratory Pattern Blood Pressure 179/106 H 160/98 H Blood Pressure Mean 118 BP Systolic 179 BP Diastolic 106 Blood Pressure Source Monitor Blood Pressure Position Semi-Fowlers Blood Pressure Location Left Arm Pulse Ox 98 98 Oxygen Delivery Method Room Air 06/14/21 16:02 06/14/21 16:04 06/14/21 16:09 Temperature Temperature Source Pulse Rate 101 H 99 98 Respiratory Rate Respiratory Effort Respiratory Depth Respiratory Pattern Blood Pressure 151/101 H Blood Pressure Mean BP Systolic 151 BP Diastolic 101 Blood Pressure Source Blood Pressure Position Blood Pressure Location Pulse Ox 97 97 Oxygen Delivery Method 06/14/21 16:13 06/14/21 16:14 06/14/21 16:19 Temperature 98.4 F Temperature Source Temporal Pulse Rate 96 92 92 Respiratory Rate 16 Respiratory Effort Normal Respiratory Depth Normal Respiratory Pattern Normal Blood Pressure 156/97 H 156/97 H Blood Pressure Mean 116 BP Systolic 156 BP Diastolic 97 Blood Pressure Source Monitor Blood Pressure Position Semi-Fowlers Blood Pressure Location Left Arm Pulse Ox 94 98 97 Oxygen Delivery Method Room Air 06/14/21 16:22 06/14/21 16:24 06/14/21 16:29 Temperature Temperature Source Pulse Rate 98 98 101 H Respiratory Rate Respiratory Effort Respiratory Depth Respiratory Pattern Blood Pressure 179/103 H 167/91 H Blood Pressure Mean BP Systolic 179 167 BP Diastolic 103 91 Blood Pressure Source Blood Pressure Position Blood Pressure Location Pulse Ox 96 97 Oxygen Delivery Method 06/14/21 16:30 06/14/21 16:34 06/14/21 16:39 Temperature Temperature Source Pulse Rate 100 100 Respiratory Rate 16 Respiratory Effort Respiratory Depth Respiratory Pattern Blood Pressure 179/103 H Blood Pressure Mean 128 BP Systolic BP Diastolic Blood Pressure Source Monitor Blood Pressure Position Semi-Fowlers Blood Pressure Location Left Arm Pulse Ox 97 97 97 Oxygen Delivery Method Room Air 06/14/21 16:40 06/14/21 16:44 06/14/21 16:45 Temperature Temperature Source Pulse Rate 92 86 93 Respiratory Rate 16 Respiratory Effort Respiratory Depth Respiratory Pattern Blood Pressure 163/100 H 163/100 H Blood Pressure Mean 121 BP Systolic 163 BP Diastolic 100 Blood Pressure Source Monitor Blood Pressure Position Semi-Fowlers Blood Pressure Location Left Arm Pulse Ox 98 96 Oxygen Delivery Method Room Air 06/14/21 16:49 06/14/21 16:54 06/14/21 16:56 Temperature Temperature Source Pulse Rate 99 92 91 Respiratory Rate Respiratory Effort Respiratory Depth Respiratory Pattern Blood Pressure 143/93 H Blood Pressure Mean BP Systolic 143 BP Diastolic 93 Blood Pressure Source Blood Pressure Position Blood Pressure Location Pulse Ox 97 98 Oxygen Delivery Method 06/14/21 16:59 06/14/21 17:00 06/14/21 17:04 Temperature Temperature Source Pulse Rate 94 93 87 Respiratory Rate 16 Respiratory Effort Respiratory Depth Respiratory Pattern Blood Pressure 143/93 H Blood Pressure Mean 109 BP Systolic BP Diastolic Blood Pressure Source Monitor Blood Pressure Position Semi-Fowlers Blood Pressure Location Left Arm Pulse Ox 96 97 97 Oxygen Delivery Method Room Air 06/14/21 17:08 06/14/21 17:09 06/14/21 17:14 Temperature Temperature Source Pulse Rate 94 97 99 Respiratory Rate Respiratory Effort Respiratory Depth Respiratory Pattern Blood Pressure 141/89 H Blood Pressure Mean BP Systolic 141 BP Diastolic 89 Blood Pressure Source Blood Pressure Position Blood Pressure Location Pulse Ox 97 98 Oxygen Delivery Method 06/14/21 17:15 06/14/21 17:18 06/14/21 17:19 Temperature Temperature Source Pulse Rate 94 91 91 Respiratory Rate 16 Respiratory Effort Respiratory Depth Respiratory Pattern Blood Pressure 141/89 H 136/88 H Blood Pressure Mean 106 BP Systolic 136 BP Diastolic 88 Blood Pressure Source Monitor Blood Pressure Position Semi-Fowlers Blood Pressure Location Left Arm Pulse Ox 96 98 Oxygen Delivery Method Room Air 06/14/21 17:24 Temperature Temperature Source Pulse Rate 95 Respiratory Rate Respiratory Effort Respiratory Depth Respiratory Pattern Blood Pressure Blood Pressure Mean BP Systolic BP Diastolic Blood Pressure Source Blood Pressure Position Blood Pressure Location Pulse Ox 97 Oxygen Delivery Method Weight Weight: 288 lb 5.834 oz Body Mass Index (BMI) 40.2 Physical Exam Const alert, oriented x3, no apparent distress and healthy appearing General Appearance: cooperative; Negative for anxious HEENT normocephalic Face and Sinus: normal facial exam Eyes EOMs intact bilaterally and no scleral icterus General Eye: normal appearance of both eyes Neck full ROM and supple Lymph Lymphatic: no lymphadenopathy noted Chest Chest: abnormal inspection of the chest Resp normal respiratory effort Effort and Inspection: able to speak in complete sentences Cardio regular rate GI soft to palpation and non-tender Inspection: gravid Palpation: soft; Negative for tender external exam normal Back/Spine no CVA tenderness Extremity normal to inspection, full ROM and no clubbing, cyanosis or edema General Extremity: Negative for calf tenderness or edema Skin Lesions: no lesions Rashes: no rashes Psych mental status grossly normal Labs Labs Labs: Blood Type O POSITIVE Antibody Screen NEGATIVE Hct 38.2 % (37-47) Hgb 13.2 g/dL (12.0-15.0) Pap Smear Negative Obstetrics US Syphilis Total Ab Non-reactive Rubella IgG Antibody Reactive (Nonreactive) Hep Bs Antigen Non-Reactive (Nonreactive) Chlamydia DNA (JOSUE) Negative (Negative) Neisseria gonorrhoeae DNA (JOSUE) Negative (Negative) HIV 1&2 Antibody Non-Reactive (Nonreactive) Glucose 1 Hr 50 gm 147 mg/dL (70-140) H Group B Strep DNA Pending Miscellaneous Test Assessment & Plan (1) induced hypertension: COMMENT: twice weekly nsts and labs weekly. steroids sent to pharmacy to bring back for injection (2) Marginal insertion of umbilical cord affecting management of mother: COMMENT: growth US q4 weeks starting at 28 weeks. 06/22 nl growth (3) Abnormal glucose affecting : COMMENT: 3 hr GTT nl (4) UTI in , antepartum: COMMENT: Rx [facility] Keflex 01/15. Rpt culture neg (5) Subseptate uterus: COMMENT: Per previous [facility] records (6) Genital herpes affecting : COMMENT: plan valtrex @ 36 weeks (7) Obesity affecting : QUALIFIERS: Trimester: second trimester Qualified Code(s): O99.212 - Obesity complicating , second trimester COMMENT: 1 tm GCT. encouraged healthy weight gain (8) Supervision of normal first : QUALIFIERS: Trimester: second trimester Qualified Code(s): Z34.02 - Encounter for supervision of normal first , second trimester COMMENT: PRR ISABELLE: 07/15/21 FOB ?:Wilfrid with be with her and they want paternity testing. Mom- Maci (9) : QUALIFIERS: Weeks of gestation: 34 weeks Qualified Code(s): Z3A.34 - 34 weeks gestation of COMMENT: genetic- low risk; discussed carrier and ntd- declined. NL anatomy (10) COVID-19 vaccine series completed: COMMENT: 04/2020; 05/2020 Moderna (11) Anxiety: COMMENT: previously on prozac- was only taking PRN PLAN: The patient received 2 doses of 20 mg IV labetalol and 100mg po labetalol and now has bps 140's/90's down from 160's/110 Patient presents IOL, plan management for with cytotec Pain management: plans epidural as needed GBS unknown- will treat due to prematurity. Management of any complications: none I have reviewed the [facility] and made any clinically relevant updates.
[2021-06-14 17:55] LABS: Group B Strep DNA By PCR Negative (Negative); Internal Control PASS; Probe Check PASS; Specimen Processing Control PASS
[2021-06-14] MEDS: miSOPROStol 25 MCG TABLET VAGINAL ×2 (18:10→22:15)
[2021-06-14] MEDS: Acetaminophen 500 MG Tablet PO (18:40)
--- NOTE | 2021-06-14 18:53 | NURSING ---
Upon admission questions. Pt states unsure of FOB. Is between 2 men. Pt's ex boyfriend and current boyfriend. Pt reports all parties are aware of situation. On admission questions FOB hx left blank.
[2021-06-14] MEDS: Labetalol 200 MG Tablet PO (21:25)
[2021-06-15] VITALS (106 sets, daily range): BP systolic 91–160; BP diastolic 51–88; PULSE 59–103; RESP 14–18; TEMP 36.2–37.2; O2SAT 85–100
[2021-06-15] MEDS: miSOPROStol 25 MCG TABLET VAGINAL (02:17)
[2021-06-15] MEDS: Acetaminophen 500 MG Tablet PO ×4 (02:21→22:02)
[2021-06-15] MEDS: Magnesium Sulfate 20 GM/500 ML BAG IV ×3 (02:24→21:44)
[2021-06-15] MEDS: miSOPROStol 25 MCG TABLET PO (06:22)
[2021-06-15 08:18] LABS: Absolute Lymphocyte Count 1.72 X10^3/uL (0.83-4.51); Absolute Neutrophil Count 16.4 X10^3/uL (2.0-7.7); Basophil# 0.06 X10^3/uL; Basophil% 0.3 % (0-1); Hematocrit 37.9 % (37-47); Hemoglobin 12.6 g/dL (12.0-15.0); Lymphocyte # 1.72 X10^3/ul (0.83-4.51); Lymphocyte % 8.8 % (19-41); Mean Corp Hgb Conc 33.2 g/dL (32-36); Mean Corpuscular Volume 93.1 fL (81-99); Mean Platelet Vol. 11.9 fl (6.2-12.0); Monocyte# 1.06 X10^3/uL; Monocyte% 5.4 % (0-10); NRBC Flagged by Analyzer 0 % (0-5); Neutrophil # 16.38 X10^3/uL (2.7-7.7); Neutrophil % 83.3 % (47-70); Platelet Count 261 K/mm3 (150-450); RBC Distribution Width CV 12.9 % (11.6-14.6); Red Blood Count 4.07 M/mm3 (4.2-5.4); White Blood Count 19.7 K/mm3 (4.4-11.0)
[2021-06-15 08:48] LABS: ALB/GLOB Ratio 0.8 RATIO (0.9-2.4); AST(SGOT) 16 U/L (15-37); Alanine Aminotransfer ALT/SGPT 21 U/L (13-56); Albumin, Serum 3.1 g/dL (3.2-5.0); Alkaline Phosphatase 106 U/L (45-117); Anion Gap 9 (5-15); BUN 10 mg/dL (7-18); BUN/Creat Ratio 10.2 RATIO (10-20); Calcium,Total 8.2 mg/dL (8.5-10.1); Chloride 104 mmol/L (98-107); Creatinine, Serum 0.98 mg/dL (0.55-1.02); EST Glomerular Filtration Rate 70 mL/min (>60); Est Glom Filt Rate - Afr Amer 84 mL/min (>60); Estimated Creatinine Clearance 92.11 ml/min; Globulin 4.1 g/dL (2.2-4.2); Glucose 111 mg/dL (74-106); Potassium 4.3 mmol/L (3.5-5.1); Protein, Total 7.2 g/dL (6.4-8.2); Sodium Level 133 mmol/L (136-145)
[2021-06-15] MEDS: Labetalol 200 MG Tablet PO ×2 (09:34→21:53)
[2021-06-15] MEDS: Mag Hydrox/Al Hydrox/Simeth 30 ML UDC PO ×2 (09:44→21:53)
[2021-06-15] MEDS: Ondansetron 4 MG/2 ML Vial IV ×2 (10:45→18:44)
[2021-06-15] MEDS: 0.9% Normal Saline Single 100 ML IV.SOLN. INTRA-UTER (10:52)
[2021-06-15] MEDS: fentaNYL 100 MCG/2 ML Ampul IV ×2 (11:07→13:24)
--- NOTE | 2021-06-15 11:12 | NURSING ---
1037-having ringing in her ears after being sat up from having singh bulb place, not feeling well at this time.
[2021-06-15] MEDS: Oxytocin 30 units/NS 500 ml 30 UNITS/500 ML IV.SOLN IV (11:55)
[2021-06-15] MEDS: Lactated Ringers 500 ML 999 ML IV (17:05)
[2021-06-15] MEDS: fentaNYL-bupivacaine (epidural) 100 ML BAG EPIDURAL ×2 (18:19→22:14)
[2021-06-15] MEDS: Lactated Ringers 1,000 ML 50 ML IV (23:46)
[2021-06-16] VITALS (53 sets, daily range): BP systolic 96–160; BP diastolic 61–98; PULSE 74–100; RESP 16–18; TEMP 36.3–37.2; O2SAT 93–100
[2021-06-16] MEDS: Penicillin G 3,000,000 Units 50 ML 100 UNITS IV ×4 (00:41→13:22)
[2021-06-16] MEDS: fentaNYL-bupivacaine (epidural) 100 ML BAG EPIDURAL ×3 (03:21→13:43)
[2021-06-16 07:05] LABS: Hematocrit 38.7 % (37-47); Hemoglobin 12.8 g/dL (12.0-15.0); Mean Corp Hgb Conc 33.1 g/dL (32-36); Mean Corpuscular Hgb 30.8 pg (27.0-32.0); Mean Corpuscular Volume 93.3 fL (81-99); Mean Platelet Vol. 11.7 fl (6.2-12.0); Platelet Count 254 K/mm3 (150-450); RBC Distribution Width CV 12.8 % (11.6-14.6); RBC Distribution Width SD 43.7 fl (35.1-43.9); Red Blood Count 4.15 M/mm3 (4.2-5.4); White Blood Count 23.3 K/mm3 (4.4-11.0)
[2021-06-16 07:20] LABS: ALB/GLOB Ratio 0.7 RATIO (0.9-2.4); AST(SGOT) 14 U/L (15-37); Alanine Aminotransfer ALT/SGPT 17 U/L (13-56); Albumin, Serum 2.9 g/dL (3.2-5.0); Alkaline Phosphatase 99 U/L (45-117); Anion Gap 7 (5-15); BUN 14 mg/dL (7-18); BUN/Creat Ratio 13.6 RATIO (10-20); Calcium,Total 7.2 mg/dL (8.5-10.1); Chloride 103 mmol/L (98-107); Creatinine, Serum 1.03 mg/dL (0.55-1.02); EST Glomerular Filtration Rate 66 mL/min (>60); Est Glom Filt Rate - Afr Amer 80 mL/min (>60); Estimated Creatinine Clearance 87.64 ml/min; Globulin 3.9 g/dL (2.2-4.2); Glucose 108 mg/dL (74-106); Potassium 4.1 mmol/L (3.5-5.1); Protein, Total 6.8 g/dL (6.4-8.2); Sodium Level 134 mmol/L (136-145)
[2021-06-16] MEDS: Magnesium Sulfate 20 GM/500 ML BAG IV ×2 (07:22→18:30)
[2021-06-16] MEDS: Acetaminophen 500 MG Tablet PO (08:08)
--- NOTE | 2021-06-16 08:16 | PN.OBGYN_ITS ---
Subjective Subjective pt is sitting up in bed comfortably with epidural in place. Per nurse, she is now 6-7 cm, membranes ruptured, IUPC in place and pitocin running at 20mu/min. The patient states that she only slept an hour or 2 last night. She denies headache, visual changes, or epigastric pain. Objective Data Objective Data Vital Signs: Vital Signs Temp Pulse Resp BP Pulse Ox 98.8 F 88 16 140/90 H 99 06/16/21 08:00 06/16/21 08:00 06/15/21 06:13 06/16/21 08:00 06/16/21 07:59 Oxygen Delivery Method Room Air Weight: 288 lb 5.834 oz Body Mass Index (BMI) 40.2 Intake & Output: Intake and Output for Last 24 Hours 06/14/21 06/15/21 06/16/21 23:59 23:59 23:59 Intake Total 1440 / 1670 5490.19 / 5490.19 1262.37 / 1262.37 Output Total 900 / 900 4925 / 4925 1320 / 1320 Balance 540 / 770 565.19 / 565.19 -57.63 / -57.63 Lab / Micro Data Result Diagrams: 06/16/21 06:58 06/16/21 06:58 Labs: Laboratory Results - last 24 hr 06/15/21 08:07: WBC 19.7 H, RBC 4.07 L, Hgb 12.6, Hct 37.9, MCV 93.1, MCH 31.0, MCHC 33.2, RDW Std Deviation 44.0 H, RDW Coeff of David 12.9, Plt Count 261, MPV 11.9, Immature Gran % (Auto) 2.200 H, Neut % (Auto) 83.3 H, Lymph % (Auto) 8.8 L , [place] % (Auto) 5.4, Eos % (Auto) 0.0, Baso % (Auto) 0.3, Absolute Neuts (auto) 16.4 H, Absolute Lymphs (auto) 1.72, Nucleated RBC % 0 06/15/21 08:07: Sodium 133 L, Potassium 4.3, Chloride 104, Carbon Dioxide 20.0 L , Anion Gap 9, BUN 10, Creatinine 0.98, Estim Creat Clear Calc 92.11, Est GFR (MDRD) Af Amer 84, Est GFR (MDRD) Non-Af 70, BUN/Creatinine Ratio 10.2, Glucose 111 H, Calcium 8.2 L, Total Bilirubin 0.20, AST 16, ALT 21, Alkaline Phosphatase 106, Total Protein 7.2, Albumin 3.1 L, Globulin 4.1, Albumin/Globulin Ratio 0.8 L 06/16/21 06:58: WBC 23.3 H, RBC 4.15 L, Hgb 12.8, Hct 38.7, MCV 93.3, MCH 30.8, MCHC 33.1, RDW Std Deviation 43.7, RDW Coeff of David 12.8, Plt Count 254, MPV 11.7 06/16/21 06:58: Sodium 134 L, Potassium 4.1, Chloride 103, Carbon Dioxide 24.0, Anion Gap 7, BUN 14, Creatinine 1.03 H, Estim Creat Clear Calc 87.64, Est GFR (MDRD) Af Amer 80, Est GFR (MDRD) Non-Af 66, BUN/Creatinine Ratio 13.6, Glucose 108 H, Calcium 7.2 L, Total Bilirubin 0.20, AST 14 L, ALT 17, Alkaline Phosphatase 99, Total Protein 6.8, Albumin 2.9 L, Globulin 3.9, Albumin/Globulin Ratio 0.7 L Micro: Microbiology 06/15/21 08:34 Nasal Secretion SARS-CoV-2 Antigen (Rapid) - Final ROS Constitutional Constitutional: Reports systems reviewed and no addt'l complaints, except as documented Eyes Eyes: Reports as per HPI Cardiovascular Cardiovascular: Denies abdominal pain, lightheadedness, nausea or palpitations Respiratory/Chest Respiratory/Chest: Denies shortness of breath at rest Physical Exam HEENT normocephalic Face and Sinus: normal facial exam Resp Effort and Inspection: able to speak in complete sentences and symmetric chest movement; Negative for abnormal respiratory pattern Cardio regular rate and regular rhythm NST FHR Rate Baby A Baseline: 140 Variability:: Moderate Accelerations:: 15 x 15 Decelerations:: Late (one late appearing decel most recently) NST Reactive:: Yes FHR Category:: Category I Assessment & Plan (1) induced hypertension: COMMENT: twice weekly nsts and labs weekly. steroids sent to pharmacy to bring back for injection (2) Marginal insertion of umbilical cord affecting management of mother: COMMENT: growth US q4 weeks starting at 28 weeks. 06/22 nl growth (3) Abnormal glucose affecting : COMMENT: 3 hr GTT nl (4) UTI in , antepartum: COMMENT: Rx [facility] Keflex 01/15. Rpt culture neg (5) Subseptate uterus: COMMENT: Per previous [facility] records (6) Genital herpes affecting : COMMENT: plan valtrex @ 36 weeks (7) Obesity affecting : QUALIFIERS: Trimester: second trimester Qualified Code(s): O99.212 - Obesity complicating , second trimester COMMENT: 1 tm GCT. encouraged healthy weight gain (8) Supervision of normal first : QUALIFIERS: Trimester: second trimester Qualified Code(s): Z34.02 - Encounter for supervision of normal first , second trimester COMMENT: PRR ISABELLE: 07/15/21 FOB ?:Wilfrid with be with her and they want paternity testing. Mom- Maci PLAN: severe pre-eclampsia- on magnesium 2g/hr, 200 tid labetalol mvu's adequate and cx thinning out, station lower now. Labor progress in now more reassuring than it had been overnight. Plan to increase pitocin to a max of 30 mu/min then cut in half. plan to re-evaluate in 2 hours unless further report from nursing.
[2021-06-16] MEDS: Labetalol 200 MG Tablet PO ×2 (10:02→22:40)
[2021-06-16] MEDS: Oxytocin 30 units/NS 500 ml 30 UNITS/500 ML IV.SOLN 334 UNITS IV (17:05)
[2021-06-16] MEDS: Carboprost Tromethamine 250 MCG/ML Ampul IM (17:09)
[2021-06-16] MEDS: miSOPROStol 200 MCG Tablet 1000 MCG RC (17:12)
--- NOTE | 2021-06-16 17:29 | EX.PCM.OBRPT ---
Maternal Data Information ISABELLE Calculator Estimated Delivery Date Method Current Current Estimate 07/15/21 LMP (Certain) 35w 6d Vaginal Delivery Operative Information Date of Procedure: 06/16/21 Pre-Operative Diagnosis: 35 weeks with severe pre-eclampsia Post-Operative Diagnosis: 35 weeks with severe pre-eclampsia Surgery / Procedure Performed: Spontaneous Vaginal Delivery Type of Anesthesia: Epidural Estimated Blood Loss: 300cc Findings Description of Procedure: Patient began pushing and delivered the head in the GARRISON presentation. The head was delivered atraumatically. The anterior and posterior shoulders delivered without complication followed by the rest of the and the was placed on the maternal abdomen. Delayed cord clamping was employed for approximately 60 seconds. Cord was clamped and cut and gentle traction was applied to the cord and the placenta delivered spontaneously immediately following it was noted to be intact with three-vessel cord. The perineum and vagina were inspected and noted to have no laceration. EBL was 300cc. Patient and infant tolerated delivery well. Presentation: Vertex Amniotic Membrane Rupture Type: Spontaneous Amniotic Fluid Description: Clear Placental Delivery Description: Spontaneous Placenta Disposition: [facility] Cord Vessel Description: 3 Vessels Cord Entanglement: None Infant A Gender: Male (1 minute): 5 (5 minute): 8 Delayed Cord Clamping: Yes Post Vaginal Delivery Medications Given After Delivery: IV Pitocin, IM Hemabate and - (800mcg cytotec) Episiotomy Description: None Laceration: None Complication Complications: None Multi Select Codes Urinary/Genital Urinary/Genital CPT Codes: 47606 Vaginal Delivery [facility]
[2021-06-16] MEDS: NIFEdipine 60 MG Tablet PO (19:49)
--- NOTE | 2021-06-16 20:06 | NURSING ---
epidural catheter removed at 1999 tip intact, pt tolerated well, rated pain 0/10, band aid applied
[2021-06-17] VITALS (25 sets, daily range): BP systolic 94–143; BP diastolic 58–88; PULSE 82–104; RESP 14–18; TEMP 36.7–37.3; O2SAT 92–97
[2021-06-17] MEDS: Acetaminophen 500 MG Tablet 1000 MG PO ×2 (00:46→17:32)
[2021-06-17] MEDS: Magnesium Sulfate 20 GM/500 ML BAG IV (02:33)
[2021-06-17] MEDS: Ibuprofen 600 MG Tablet PO (04:48)
[2021-06-17 05:24] LABS: Hematocrit 35.4 % (37-47); Hemoglobin 11.8 g/dL (12.0-15.0); Mean Corp Hgb Conc 33.3 g/dL (32-36); Mean Corpuscular Volume 92.9 fL (81-99); Mean Platelet Vol. 11.8 fl (6.2-12.0); Platelet Count 228 K/mm3 (150-450); RBC Distribution Width CV 12.9 % (11.6-14.6); RBC Distribution Width SD 43.6 fl (35.1-43.9); Red Blood Count 3.81 M/mm3 (4.2-5.4)
--- NOTE | 2021-06-17 07:30 | NURSING ---
report given to Milena Coulter RN who is assuming care of pt at this time
--- NOTE | 2021-06-17 09:41 | PCM.PN.OB ---
Subjective Subjective Patient doing well without complaints. Tolerating PO. Ambulating and voiding without difficulty. Feeding well. Denies chest pain, shortness of breath, calf pain/swelling, fevers, chills, lightheadedness. Objective Data Objective Data Vital Signs: Vital Signs Temp Pulse Resp BP Pulse Ox 98.6 F 83 16 122/75 H 92 06/17/21 08:00 06/17/21 08:55 06/17/21 08:55 06/17/21 08:55 06/17/21 08:55 Oxygen Delivery Method Room Air Weight: 288 lb 5.834 oz Body Mass Index (BMI) 40.2 Intake & Output: Intake and Output for Last 24 Hours 06/15/21 06/16/21 06/17/21 23:59 23:59 23:59 Intake Total 5490.19 / 5490.19 5966.81 / 5966.81 2077.5 / 2077.5 Output Total 4925 / 4925 3390 / 3390 3550 / 3550 Balance 565.19 / 565.19 2576.81 / 2576.81 -1472.5 / -1472.5 Lab / Micro Data Result Diagrams: 06/17/21 04:55 06/16/21 06:58 Labs: Laboratory Results - last 24 hr 06/17/21 04:55: WBC 21.0 H, RBC 3.81 L, Hgb 11.8 L, Hct 35.4 L, MCV 92.9, MCH 31.0, MCHC 33.3, RDW Std Deviation 43.6, RDW Coeff of David 12.9, Plt Count 228, MPV 11.8 Micro: Microbiology 06/14/21 Unknown Genital vaginal Group B Streptococcus Culture - Preliminary Group B Beta Streptococcus is not isolated. 06/15/21 08:34 Nasal Secretion SARS-CoV-2 Antigen (Rapid) - Final ROS Constitutional Constitutional: Denies chills, fatigue, fever(s), poor appetite or weakness Eyes Eyes: Denies blurry vision, change in vision, seeing flashes or spots in vision ENT HEENT: Denies dizziness, headache(s), loss taste/smell or sore throat Cardiovascular Cardiovascular: Denies chest pain, dizziness, dyspnea, irregular heart rhythm, palpitations or rapid heart rate Respiratory/Chest Respiratory/Chest: Denies chest tightness, cough, dyspnea or breast pain Gastrointestinal Gastrointestinal: Denies abdominal pain, constipation or vomiting Genitourinary Genitourinary: Denies dysuria or flank pain Musculoskeletal Musculoskeletal: Denies difficulty walking, joint pain, limited range of motion or numbness Neurologic Neurologic: Denies abnormal movements, abnormal speech, dizziness, numbness, seizure-like activity or syncope Psychiatric Psychiatric: Denies anxiety, behavioral changes, change in appetite, confusion, depression or suicidal thoughts Physical Exam Const alert, oriented x3 and no apparent distress General Appearance: cooperative and comfortable Resp normal respiratory effort Cardio regular rate GI normal to inspection, nondistended, normoactive bowel sounds GI Narrative: uterus is firm below umbilicus Palpation: soft Bimanual Exam - Adnexa, Other: Negative for cul-de-sac fullness Back/Spine no CVA tenderness and thoraco-lumbar ROM normal Extremity normal to inspection, no clubbing, cyanosis or edema, no calf tenderness and no pedal edema Psych mental status grossly normal, thought process normal, cooperative, affect normal, speech normal, activity/motor behavior normal, denies homicidal ideation and denies suicidal ideation Assessment & Plan (1) induced hypertension: COMMENT: twice weekly nsts and labs weekly. steroids sent to pharmacy to bring back for injection (2) Marginal insertion of umbilical cord affecting management of mother: COMMENT: growth US q4 weeks starting at 28 weeks. 06/22 nl growth (3) Abnormal glucose affecting : COMMENT: 3 hr GTT nl (4) UTI in , antepartum: COMMENT: Rx Uatsdin ED Keflex 01/15. Rpt culture neg (5) Subseptate uterus: COMMENT: Per previous [facility] records (6) Genital herpes affecting : COMMENT: plan valtrex @ 36 weeks (7) Obesity affecting : QUALIFIERS: Trimester: second trimester Qualified Code(s): O99.212 - Obesity complicating , second trimester COMMENT: 1 tm GCT. encouraged healthy weight gain (8) Supervision of normal first : QUALIFIERS: Trimester: second trimester Qualified Code(s): Z34.02 - Encounter for supervision of normal first , second trimester COMMENT: PRR ISABELLE: 07/[birth year] FOB ?:Wilfrid with be with her and they want paternity testing. Mom- Maci (9) : QUALIFIERS: Weeks of gestation: 34 weeks Qualified Code(s): Z3A.34 - 34 weeks gestation of COMMENT: genetic- low risk; discussed carrier and ntd- declined. NL anatomy (10) COVID-19 vaccine series completed: COMMENT: 04/2020; 05/2020 Moderna (11) Anxiety: COMMENT: previously on prozac- was only taking PRN (12) Status post vaginal delivery: COMMENT: baby boy Rett - JV PLAN: s/p PPD # 1- 48 hr IOL for severe pre-e 1. routine post delivery care 2. breast feeding- support given 3. rh positive 4. rubella immune 5. stop mag today. plan to start with weaning down to 1g/hr now
[2021-06-17] MEDS: NIFEdipine 60 MG Tablet PO (10:31)
--- NOTE | 2021-06-17 11:30 | CASEMGMT ---
Social Work Assessment Labor and Delivery Unit Date of Referral: 06/16/2021 Time of Referral: 18:00 Referred By: Dr. Hannah Robles Date of Intervention: 06/17/2021 Time of Intervention: 11:30 Reason for Referral: Mother of baby (MOB) unsure of who Father of baby (FOB) is. History obtained from: MOB, Chart, nursing staff. Household composition: MOB lives alone in private home with dog. , Shar Stanton to join MOB. Patient's parent/guardian status: MOB reports to be dating Carlton but ?unsure of father? for Shar. MOB reports ?it is either Carlton or my ex.? MOB reports that was not planned but accepted. MOB reports ?I have always wanted children.? MOB states to have a positive relationship with Carlton and MOB?s ex-boyfriend. MOB reports that both Carlton and ex-boyfriend ?want to be a father? and ?will be fine if Shar is theirs.? MOB denies concerns of abuse by either Carlton or ex-boyfriend and to feel safe with both individuals. Medical History: MOB with history prior to delivery of this infant. MOB with vaginal delivery after 48-hour induction due to blood pressure. MOB with appropriate care visits. born on 06/16/2023 with apgars of 5 and 8 at 1min and 5min. weight of 2440g. to follow with Dr. Marianne Valdes in the community. MOB plans to breast feed and reports that breast feeding is going well. 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 MOB denies issues with comprehension or understanding. Financial Status: MOB to have 12 weeks off work and denies financial concerns. Supplies: MOB reports to have needed supplies including a car seat and crib. Childcare/Caregiver(s): MOB plans to be primary caregiver for infant until returning to work. MOB reports to have a in home baby sitter set up for when MOB work?s and to also have support from family. Transportation: MOB denies concerns. Programs/Agencies Involved: No active community resources. Children Services/Legal Issues: None identified. Mental Health History: MOB with history of anxiety and taking Prozac. MOB states to have stopped taking Prozac in 2019 as ?things were better.? MOB reported anxiety because of working as a nurse during a pandemic. MOB denied any suicidal thoughts or history of. MOB reported positive support from family and friends. This hospice social worker broached conversation of depression and anxiety and was able to facilitate conversation with MOB about signs and symptoms. Substance Use History: Denies substance abuse/use. PHQ9: Did not trigger. Family/Social Stressors: MOB denies current stressors/concerns. Support Systems: MOB reports to have positive support from family and friends. Depression and Anxiety/Shaken Baby/Safe Sleeping: This hospice social worker provided MOB with information on depression and anxiety, shaken baby, safe sleeping, [facility] general resource list. Assessment: Met with MOB and in room. Introduced self and hospice social worker role. MOB agreeable to speak with this hospice social worker. MOB sister, Kalyani present in room. MOB provided verbal permission for this hospice social worker to speak openly with Kalyani present. Kalyani holding infant throughout conversation. MOB reported a connection with . MOB denied concerns on returning to the community. MOB with multiple questions about paternity testing and resources in this regard. This hospice social worker provided MOB with resources/information options for paternity testing. MOB denies further questions/concerns. MOB with pleasant and engaged affect. Active support and listening provided. PLAN: to discharge to home with MOB. No other services requested or indicated. Ethel BRICENO, MICHEAL
[2021-06-17] MEDS: Labetalol 200 MG Tablet PO ×2 (14:45→22:12)
[2021-06-17] MEDS: Senna/Docusate Sodium 1 Tablet PO (22:12)
[2021-06-18 01:47] VITALS: BP 129/76; PULSE 83; RESP 14; TEMP 36.9; O2SAT 96
[2021-06-18] MEDS: Ibuprofen 600 MG Tablet PO (03:56)
[2021-06-18 05:37] VITALS: BP 121/72; PULSE 82
[2021-06-18] MEDS: Labetalol 200 MG Tablet PO ×2 (06:33→14:06)
--- NOTE | 2021-06-18 07:15 | NURSING ---
bedside report given to Giancarlo Osorio RN who is assuming care of pt at this time
[2021-06-18 08:38] VITALS: BP 134/75; BP 134/77; PULSE 88; RESP 16; TEMP 36.9
--- NOTE | 2021-06-18 10:35 | PCM.PN.OB ---
Subjective Subjective Patient doing well without complaints. Tolerating PO. Ambulating and voiding without difficulty. Feeding well. Denies chest pain, shortness of breath, calf pain/swelling, fevers, chills, lightheadedness. She states that she wants to go home Objective Data Objective Data Vital Signs: Vital Signs Temp Pulse Resp BP Pulse Ox 98.4 F 88 16 134/77 H 96 06/18/21 08:38 06/18/21 08:38 06/18/21 08:38 06/18/21 08:38 06/18/21 01:47 Oxygen Delivery Method Room Air Weight: 288 lb 5.834 oz Body Mass Index (BMI) 40.2 Intake & Output: Intake and Output for Last 24 Hours 06/16/21 06/17/21 06/18/21 23:59 23:59 23:59 Intake Total 5966.81 / 5966.81 2441.67 / 2441.67 Output Total 3390 / 3390 4200 / 4200 Balance 2576.81 / 2576.81 -1758.33 / -1758.33 Lab / Micro Data Result Diagrams: 06/17/21 04:55 06/16/21 06:58 Micro: Microbiology 06/14/21 Unknown Genital vaginal Group B Streptococcus Culture - Preliminary Group B Beta Streptococcus is not isolated. 06/15/21 08:34 Nasal Secretion SARS-CoV-2 Antigen (Rapid) - Final ROS Constitutional Constitutional: Denies chills, fatigue, fever(s), poor appetite or weakness Eyes Eyes: Denies blurry vision, change in vision, seeing flashes or spots in vision ENT HEENT: Denies dizziness, headache(s), loss taste/smell or sore throat Cardiovascular Cardiovascular: Denies chest pain, dizziness, dyspnea, irregular heart rhythm, palpitations or rapid heart rate Respiratory/Chest Respiratory/Chest: Denies chest tightness, cough, dyspnea or breast pain Gastrointestinal Gastrointestinal: Denies abdominal pain, constipation or vomiting Genitourinary Genitourinary: Denies dysuria or flank pain Musculoskeletal Musculoskeletal: Denies difficulty walking, joint pain, limited range of motion or numbness Neurologic Neurologic: Denies abnormal movements, abnormal speech, dizziness, numbness, seizure-like activity or syncope Psychiatric Psychiatric: Denies anxiety, behavioral changes, change in appetite, confusion, depression or suicidal thoughts Physical Exam Const alert, oriented x3 and no apparent distress General Appearance: cooperative and comfortable Resp normal respiratory effort Cardio regular rate GI normal to inspection, nondistended, normoactive bowel sounds GI Narrative: uterus is firm below umbilicus Palpation: soft Bimanual Exam - Adnexa, Other: Negative for cul-de-sac fullness Back/Spine no CVA tenderness and thoraco-lumbar ROM normal Extremity normal to inspection, no clubbing, cyanosis or edema, no calf tenderness and no pedal edema Psych mental status grossly normal, thought process normal, cooperative, affect normal, speech normal, activity/motor behavior normal, denies homicidal ideation and denies suicidal ideation Assessment & Plan (1) Status post vaginal delivery: COMMENT: baby boy Fernie - JV (2) History of severe pre-eclampsia: PLAN: s/p PPD # 2- IOL x 48 hrs for severe pre-e -continue current doses of bp medication (labetalol 200 tid and procardia 60 xL daily) 1. routine post delivery care 2. breast feeding- support given 3. rh positive 4. rubella immune 5. return next saturday to office for BP check
--- NOTE | 2021-06-18 10:37 | PCM.DC.SUM ---
Providers Date of Admission: 06/14/21 Primary Care Physician: Dr. Marianne Nguyen MD Reason For Visit: VAGINAL DELIVERY Diagnosis Discharge Diagnosis (1) Status post vaginal delivery: Status: Acute (2) History of severe pre-eclampsia: Status: Acute Code(s): Z87.59 - Personal history of other complications of , childbirth and the puerperium Medications at Discharge Home Medications vitamin#30 30 mg iron-10 mg iron-folic acid 1 mg-omg3 capsule 1 cap PO DAILY 12/19/20 ibuprofen 600 mg PO Q6H PRN PRN 7 Days #30 tab 06/18/21 labetalol 200 mg PO TID 30 Days #90 tab 06/18/21 nifedipine 60 mg PO DAILY 30 Days #30 tab 06/18/21 Hospital Course Operations None Summary of Care Provided Minutes Spent on Discharge: 20 Hospital Course: The patient was admitted to L&D on 06/14/2021 for severe range blood pressures and increasing proteinuria. She was induced with cytotec x 12 hours then singh bulb with pitocin the next 5 hours. She was found to be 6 cm dilated on hd #2 at10 pm, her membranes were ruptured. She experienced protraction of labor and by 5pm on HD #3 She delivered vaginally.She was treated with Magnesium sulfate during the entire labor progress and on PPD #1 (HD#4) the medication was discontinued. She was also treated with maintenance labetalol and procardia as well as rescue doses of labetalol IV. On hospital day #5 she was discharged to home in stable condition on both PO procardia and labetalol. Physical Exam Const alert, oriented x3 and no apparent distress General Appearance: cooperative and comfortable Resp normal respiratory effort Cardio regular rate GI normal to inspection, nondistended, normoactive bowel sounds GI Narrative: uterus is firm below umbilicus Palpation: soft Bimanual Exam - Adnexa, Other: Negative for cul-de-sac fullness Back/Spine no CVA tenderness and thoraco-lumbar ROM normal Extremity normal to inspection, no clubbing, cyanosis or edema, no calf tenderness and no pedal edema Psych mental status grossly normal, thought process normal, cooperative, affect normal, speech normal, activity/motor behavior normal, denies homicidal ideation and denies suicidal ideation Weight / BMI Weight Weight: 288 lb 5.834 oz Body Mass Index (BMI) 40.2 ABG / Lab / Microbiology Data Result Diagrams: 06/17/21 04:55 06/16/21 06:58 Microbiology: Microbiology 06/14/21 Unknown Genital vaginal Group B Streptococcus Culture - Preliminary Group B Beta Streptococcus is not isolated. 06/15/21 08:34 Nasal Secretion SARS-CoV-2 Antigen (Rapid) - Final D/C Instructions Discharge Diet: No restrictions Discharge Activity: Return to Normal Activity, May Not Drive (while taking narcotic pain medications.) and May Shower May resume sexual activity in: 4-6 weeks Call your doctor if your incision/area has: Continuous Slow Oozing, Sudden Increased Bleeding, Increased Pain/ Swelling, Increased Redness and Foul Smelling Discharge Please Follow Up With: Hannah Robles, When: Call [phone] to make an appointment with your doctor in 6 weeks. If you had elevated blood pressure or 4th degree laceration, you will need to be seen in 2 weeks. Meaningful Use Info Meaningful Use Diagnoses (Choose all that apply): None applicable Discharge Plan Admission Admit Date/Time: 06/14/21 15:30 Primary Reason for Your Visit: vaginal delivery and treatment of severe pre-eclampsia Attending Provider: Hannah Robles Primary Care Provider: Marianne Nguyen Discharge Orders/Prescriptions Prescriptions: New labetalol 200 mg Tablet 200 mg PO TID 30 Days Qty: 90 RF: 1 nifedipine 60 mg Tablet Extended Release 24hr 60 mg PO DAILY 30 Days Qty: 30 RF: 1 ibuprofen 600 mg Tablet 600 mg PO Q6H PRN PRN (Reason: Pain Score 1-3) 7 Days Qty: 30 RF: 0 Continued PNV #[id number] 30 mg iron-10 mg iron-1 mg capsule 1 cap PO DAILY RF: 0 Referrals / Follow Up: Marianne Nguyen MD [Primary Care Provider] - Disposition Disposition (needs filled in before D/C Order can be placed): Home, Self Care
[2021-06-18] MEDS: NIFEdipine 60 MG Tablet PO (10:38)
[2021-06-18 11:57] VITALS: BP 119/66; PULSE 83; RESP 16; TEMP 37.3
[2021-06-18 14:00] VITALS: BP 139/68; PULSE 88; RESP 16; TEMP 36.6
[2021-06-18 14:02] VITALS: BP 139/78; PULSE 88
== END 2021-06-18 15:05 | disposition home or self-care (01) | DRG 806 ==
LOC: WPOUT 15:33 → WP 15:33
PROVIDERS: Obstetrics & Gynecology; Admitting Provider Obstetrics & Gynecology; PCP Family Medicine; Visit Provider Obstetrics & Gynecology
DX: O14.14 Severe pre-eclampsia complicating childbirth (principal); Z37.0 Single live birth; O98.32 Other infections with a predominantly sexual mode of transmission complicating childbirth; F41.9 Anxiety disorder, unspecified; A60.00 Herpesviral infection of urogenital system, unspecified; O99.344 Other mental disorders complicating childbirth; Z87.440 Personal history of urinary (tract) infections; Z3A.35 35 weeks gestation of pregnancy; Z87.891 Personal history of nicotine dependence; O43.193 Other malformation of placenta, third trimester; O34.03 Maternal care for unspecified congenital malformation of uterus, third trimester; Q51.28 Other and unspecified doubling of uterus; O99.214 Obesity complicating childbirth; E66.9 Obesity, unspecified
CPT/HCPCS: 59025; 59050; 80053; 82570; 84156; 85025; 85027; 86850; 86900; 86901; 87077; 87081; 87186; 87426; 87653; 99218; 99406; J7120; G0378; J2405

== ENCOUNTER 2022-06-18 09:10 | Emergency (ER) | payer BC, SELFPAY ==
[2022-06-18 09:12] VITALS: BP 126/93; PULSE 93; RESP 18; TEMP 36.6; O2SAT 99; BMI 33.0
--- NOTE | 2022-06-18 09:23 | EX.ED.DYSGE1 ---
HPI History of Present Illness Chief Complaint: Abd Pain Narrative Narrative: 31-year-old female here with abdominal pain, diarrhea. Patient states she is not having symptoms for the last 5 days since getting her last dose of weight loss shot. Notes colicky, diffuse pain that comes in waves associated with vomiting that is nonbloody nonbilious. Last bowel movement was yesterday. There is no melena or hematochezia. She notes diarrhea. Denies urinary complaints. Denies vaginal bleeding or discharge. Denies history of abdominal surgeries. Denies any fever PFSH PFSH Medical History Abnormal glucose affecting Anxiety COVID-19 vaccine series completed Genital herpes affecting Marginal insertion of umbilical cord affecting management of mother Obesity affecting PCOS (polycystic ovarian syndrome) induced hypertension Subseptate uterus Supervision of normal first UTI in , antepartum Home Medications norgestimate 0.25 mg-ethinyl estradiol 35 mcg tablet (Sprintec (28)) 1 tab PO DAILY #84 tabs 08/04/21 [Rx Last Taken Unknown] dicyclomine 10 mg capsule 10 mg PO BID #14 caps 06/18/22 [Rx Last Taken Unknown] oxycodone 5 mg capsule 5 mg PO Q6H PRN pain 3 days #12 caps 06/18/22 [Rx Last Taken Unknown] promethazine 25 mg tablet 25 mg PO TID PRN nausea and vomiting #12 tabs 06/18/22 [Rx Last Taken Unknown] Allergy/AdvReac Type Severity Reaction Status Date / Time No Known Allergies Allergy Verified 06/18/22 09:11 Family History Father Hypertension Mother Hyperlipemia Aunt Diabetes Breast cancer Grandmother Breast cancer Hypertension Colon cancer Surgical History [place] teeth removed Social History housing: house current occupational status: employed current occupation: [employer] pets and animals: Yes Smoking Status: Former smoker second hand exposure: No alcohol intake: current substance use type: former substance user seatbelt use: always do you feel safe at home: Yes ROS ROS ED ROS Narrative Constitutional: Denies fever HEENT: Denies sore throat Neck: Denies neck pain Cardiovascular: Denies chest pain, syncope Respiratory: Denies shortness of breath GI: Endorses abdominal pain, diarrhea : Denies changes in urinary habits Musculoskeletal: Denies muscle or joint pain Neurologic: Denies numbness weakness or loss of sensation Skin denies rash EXAM Physical Exam Narrative Exam Narrative: Nursing triage notes reviewed, Vital signs reviewed Constitutional: please see mdm HENT: MMM Eyes: Pupils equal round and reactive to light, Extraocular muscles intact Neck: No stridor, no JVD, full neck ROM Lungs: Clear to auscultation, No wheezing or rales. No increased work of breathing, no conversational dyspnea, no accessory muscle use, no nasal flaring. No respiratory distress noted Heart: Regular rate and rhythm, No murmurs, No rubs and No gallops, 2+ distal pulses (radial, femoral, posterior tibial) in all extremities Abdomen: Soft, there is no obvious objective tenderness, rigidity, rebound or guarding, no obvious peritoneal signs, no palpable pulsatile abdominal masses, no auscultated abdominal bruit. Negative Garcia sign, no tenderness at McBurney's point. : No CVAT Extremities: No edema Neuro: No focal neurological deficits, cranial nerves II through XII intact, 5/5 strength in all extremities. Intact sensation to light touch in all extremities, 2+ reflexes bilateral patella dens. Normal gait. No ataxia. Skin: No rash or lesions noted Const Vital Signs: 06/18/22 09:12 06/18/22 11:29 Temperature 97.8 F Temperature Source Temporal Pulse Rate 93 74 Respiratory Rate 18 18 Blood Pressure 126/93 H 144/87 H Blood Pressure Mean 104 106 Pulse Ox 99 100 Oxygen Delivery Method Room Air Room Air [facility] [place] Narrative Medical decision making narrative: Chief Complaint: External records reviewed: No recent advanced imaging of the abdomen or pelvis noted in the chart I considered the following differential diagnosis: AAA, small bowel obstruction, abdominal perforation, appendicitis, pancreatitis, hepatobiliary pathology (acute cholecystitis), mesenteric ischemia, abnormalities such as ovarian pathology, PID, ozempic toxicity, The patient's abdominal exam was not consistent with an acute surgical emergency such as acute cholecystitis, appendicitis, small bowel obstruction, AAA or abdominal perforation. I did obtain labs to rule out signs of systemic inflammation, pancreatitis, hepatobiliary pathology, , UTI. I gave symptomatic treatments in the form of normal saline, Zofran, Pepcid and Bentyl. Factors affecting care: Weight loss shots, PCOS Social determinants of health: Former smoker History obtained from others: None Shared decision making: I will have a discussion with the patient and or visitors regarding risk/benefits of further testing or admission. They will be made aware of of the risk/benefits inherent in this decision they will be given the opportunity to voice understanding. Consults: None History & Record Review Discussion w/independent historian: Family Additional record(s) reviewed:: Prior ED visit Lab Data Attestation: I reviewed the patient's lab results. Lab results narrative: CBC with leukocytosis that suggest systemic inflammation however this is downtrending from prior studies, no subcu anemia or thrombocytopenia BMP with mild hypokalemia, no anion gap, no acute kidney injury LFTs show no evidence of hepatobiliary pathology. Lipase is wnl indicating no pancreatic inflammation. Serum hCG negative Urinalysis without evidence of infection Labs: Laboratory Results - last 24 hr 06/18/22 06/18/22 06/18/22 09:40 09:40 09:40 WBC 12.7 H RBC 4.64 Hgb 14.4 Hct 42.4 MCV 91.4 MCH 31.0 MCHC 34.0 RDW Std Deviation 39.4 RDW Coeff of David 11.9 Plt Count 273 MPV 10.5 Immature Gran % (Auto) 0.300 Neut % (Auto) 78.3 H Lymph % (Auto) 13.8 L [place] % (Auto) 5.8 Eos % (Auto) 1.6 Baso % (Auto) 0.2 Absolute Neuts (auto) 10.0 H Absolute Lymphs (auto) 1.76 Nucleated RBC % 0 Sodium 139 Potassium 3.3 L Chloride 108 H Carbon Dioxide 28.0 Anion Gap 3 L BUN 14 Creatinine 1.13 H Estim Creat Clear Calc 79.15 Est GFR (MDRD) Af Amer 71 Est GFR (MDRD) Non-Af 59 L BUN/Creatinine Ratio 12.4 Glucose 105 Calcium 9.1 Total Bilirubin 0.40 Direct Bilirubin 0.13 AST 13 L ALT 17 Alkaline Phosphatase 78 Total Protein 7.0 Albumin 3.8 Globulin 3.2 Lipase 73 Serum , Qual NEGATIVE Urine Color Urine Clarity Urine pH Ur Specific [place] Urine Protein Urine Glucose (UA) Urine Ketones Urine Occult Blood Urine Nitrite Urine Bilirubin Urine Urobilinogen Ur Leukocyte Esterase 06/18/22 10:26 WBC RBC Hgb Hct MCV MCH MCHC RDW Std Deviation RDW Coeff of David Plt Count MPV Immature Gran % (Auto) Neut % (Auto) Lymph % (Auto) [place] % (Auto) Eos % (Auto) Baso % (Auto) Absolute Neuts (auto) Absolute Lymphs (auto) Nucleated RBC % Sodium Potassium Chloride Carbon Dioxide Anion Gap BUN Creatinine Estim Creat Clear Calc Est GFR (MDRD) Af Amer Est GFR (MDRD) Non-Af BUN/Creatinine Ratio Glucose Calcium Total Bilirubin Direct Bilirubin AST ALT Alkaline Phosphatase Total Protein Albumin Globulin Lipase Serum , Qual Urine Color Yellow Urine Clarity Sl. Cloudy Urine pH 6.0 Ur Specific [place] 1.020 Urine Protein 30 H Urine Glucose (UA) Normal Urine Ketones Negative Urine Occult Blood Negative Urine Nitrite Negative Urine Bilirubin 1 H Urine Urobilinogen Normal Ur Leukocyte Esterase 100 H Treatment and Re-Evaluation :: Repeat abdominal exam remained benign the patient is appropriate discharge home with oral Zofran, Bentyl. Discharge Plan Triage Chief Complaint: Abd Pain ED Provider: José Miguel Cramer Dx/Rx/DC Orders Clinical Impression: Abdominal pain, Nausea, vomiting, and diarrhea, Acute hypokalemia Instructions: Abdominal Pain Prescriptions: New dicyclomine 10 mg capsule 10 mg PO BID Qty: 14 0RF oxycodone 5 mg capsule 5 mg PO Q6H PRN (Reason: pain) 3 Days Qty: 12 0RF promethazine 25 mg tablet 25 mg PO TID PRN (Reason: nausea and vomiting) Qty: 12 0RF No Action norgestimate-ethinyl estradiol [Sprintec (28)] 0.25-35 mg-mcg tablet 1 tab PO DAILY Qty: 84 4RF Stand Alone Forms: ED Work / School Excuse Primary Care Provider: Marianne Nguyen Referrals: Marianne Nguyen MD [Primary Care Provider] - Activity Restrictions/Additional Instructions: Please return if he cannot tolerate medicine by mouth. Please take Phenergan as needed for nausea and vomiting. Please take Bentyl as prescribed. Please take Tylenol, ibuprofen every 6 hours as needed for pain control. If this does not relieve your pain please take oxycodone. Please follow with your primary care physician and as well as a weight loss physician for further outpatient evaluation and treatment. Disposition Disposition: Home, Self Care
[2022-06-18] MEDS: Dicyclomine 20 MG/2 ML Vial IM (09:42)
[2022-06-18] MEDS: Ondansetron 4 MG/2 ML Vial IV (09:42)
[2022-06-18] MEDS: 0.9% Normal Saline 1,000 ML 1000 ML IV (09:42)
[2022-06-18 09:51] LABS: Absolute Lymphocyte Count 1.76 X10^3/uL (0.83-4.51); Basophil# 0.02 X10^3/uL; Basophil% 0.2 % (0-1); Eosinophils% 1.6 % (0-5); Hematocrit 42.4 % (37-47); Hemoglobin 14.4 g/dL (12.0-15.0); Lymphocyte # 1.76 X10^3/ul (0.83-4.51); Lymphocyte % 13.8 % (19-41); Mean Corpuscular Volume 91.4 fL (81-99); Mean Platelet Vol. 10.5 fl (6.2-12.0); Monocyte# 0.74 X10^3/uL; Monocyte% 5.8 % (0-10); NRBC Flagged by Analyzer 0 % (0-5); Neutrophil # 9.95 X10^3/uL (2.7-7.7); Neutrophil % 78.3 % (47-70); Platelet Count 273 K/mm3 (150-450); RBC Distribution Width CV 11.9 % (11.6-14.6); RBC Distribution Width SD 39.4 fl (35.1-43.9); Red Blood Count 4.64 M/mm3 (4.2-5.4); White Blood Count 12.7 K/mm3 (4.4-11.0)
[2022-06-18 10:05] LABS: AST(SGOT) 13 U/L (15-37); Alanine Aminotransfer ALT/SGPT 17 U/L (13-56); Albumin, Serum 3.8 g/dL (3.2-5.0); Alkaline Phosphatase 78 U/L (45-117); Anion Gap 3 (5-15); BUN 14 mg/dL (7-18); BUN/Creat Ratio 12.4 RATIO (10-20); Bilirubin, Direct 0.13 mg/dL (0.00-0.30); Calcium,Total 9.1 mg/dL (8.5-10.1); Chloride 108 mmol/L (98-107); Creatinine, Serum 1.13 mg/dL (0.55-1.02); EST Glomerular Filtration Rate 59 mL/min (>60); Est Glom Filt Rate - Afr Amer 71 mL/min (>60); Estimated Creatinine Clearance 79.15 ml/min; Globulin 3.2 g/dL (2.2-4.2); Glucose 105 mg/dL (74-106); Lipase 73 U/L (73-393); Potassium 3.3 mmol/L (3.5-5.1); Sodium Level 139 mmol/L (136-145)
[2022-06-18 10:17] LABS: Internal QC Validated? YES +Cl - CLEAR BKGD; Pregnancy, Serum, hCG Quali. NEGATIVE Negative
[2022-06-18] MEDS: Famotidine 200 MG/20 ML MDV 20 MG in 0.9% Normal Saline (Pres. free 8 ML 300 MG IV (10:25)
[2022-06-18 10:34] LABS: Color, Urine Yellow (Yellow); Glucose, Dipstick Normal (Normal); Ketone-Dipstick Negative (Negative); Leukocyte Esterase-Dipstick 100 /ul (Negative); Nitrite-Dipstick Negative (Negative); Occult Blood-Urine Negative /ul (Negative); Protein-Dipstick 30 mg/dl (Negative); Urine Clarity Sl. Cloudy (Clear); Urine Urobilinogen Normal (Normal)
[2022-06-18 10:39] LABS: Urine Bilirubin Dipstick 1 mg/dL (Negative)
[2022-06-18 11:29] VITALS: BP 144/87; PULSE 74; RESP 18; O2SAT 100
[2022-06-18] MEDS: proMETHazine 25 MG/ML Syringe IM (11:43)
[2022-06-18] MEDS: Ketorolac 15 MG/ML Vial IV (11:51)
[2022-06-18] MEDS: Morphine 4 MG/ML Syringe IV (11:52)
[2022-06-18] MEDS: Potassium Chloride Oral Tablet 20 MEQ PO (11:52)
== END 2022-06-18 12:38 | disposition home or self-care (01) ==
PROVIDERS: Emergency Provider Emergency Medicine; PCP Family Medicine; Visit Provider Emergency Medicine
DX: R10.9 Unspecified abdominal pain (principal); R11.2 Nausea with vomiting, unspecified; R19.7 Diarrhea, unspecified; E87.6 Hypokalemia; Z87.891 Personal history of nicotine dependence
CPT/HCPCS: 80048; 80076; 81002; 83690; 84703; 85025; 96361; 96372; 96374; 96375; 99284; J7030; A4216; J2405; J3490

== ENCOUNTER → 2022-08-24 | Outpatient (CLI) | payer BC, SELFPAY | END | disposition home or self-care (01) | LOC: LAB 15:17 | PROVIDERS: PCP Family Medicine; Visit Provider Family Medicine | DX: Z20.2 Contact with and (suspected) exposure to infections with a predominantly sexual mode of transmission (principal); J02.9 Acute pharyngitis, unspecified | CPT/HCPCS: 87491; 87591 ==

== ENCOUNTER → 2023-02-19 | Outpatient (CLI) | payer BC, SELFPAY | END | disposition home or self-care (01) | LOC: LABSPEC 15:07 | PROVIDERS: PCP Family Medicine; Referring Provider Otolaryngology Otolaryngology/Facial Plastic Surgery; Visit Provider Otolaryngology Otolaryngology/Facial Plastic Surgery | DX: J32.9 Chronic sinusitis, unspecified (principal) | CPT/HCPCS: 87070; 87205 ==

== ENCOUNTER → 2023-12-30 | Outpatient (CLI) | payer BC, SELFPAY ==
[2023-12-30 16:25] LABS: Thyroid Stim Hormone (TSH) 0.664 uIU/mL (0.358-3.740)
[2023-12-30 17:01] LABS: HIV - WCH Non-Reactive (Nonreactive); Hepatitis C Antibody Non-Reactive (Nonreactive); Syphilis Antibodies Non-reactive
[2024-01-02 06:09] LABS: Chlamydia By Nucleic Acid AMP Negative (Negative); Gonococcus By Nucleic Acid AMP Negative (Negative)
== END | disposition home or self-care (01) ==
PROVIDERS: PCP Family Medicine; Referring Provider Obstetrics & Gynecology; Visit Provider Obstetrics & Gynecology
DX: Z13.29 Encounter for screening for other suspected endocrine disorder (principal); Z11.3 Encounter for screening for infections with a predominantly sexual mode of transmission; Z13.21 Encounter for screening for nutritional disorder
CPT/HCPCS: 36415; 82306; 84443; 86695; 86696; 86703; 86780; 86803; 87491; 87591

== ENCOUNTER → 2025-03-02 | Outpatient (CLI) | payer BC, SELFPAY ==
[2025-03-05 12:08] LABS: HPV APTIMA, High Risk Negative (Negative)
== END | disposition home or self-care (01) ==
LOC: LABSPEC 12:03
PROVIDERS: PCP Family Medicine; Visit Provider Advanced Practice Midwife
DX: Z12.4 Encounter for screening for malignant neoplasm of cervix (principal)
CPT/HCPCS: 87624; 88175; G0145